=== PATIENT | male | born 1990 | race Caucasian/White ===

== ENCOUNTER → 2022-11-10 15:00 | Outpatient (BNVA) | payer MEDICAID, SELFPAY | PROVIDERS: Visit Provider Physician Assistant Surgical ==

== ENCOUNTER 2023-01-06 14:06 | Outpatient (AMB) | payer MEDICAID, SELFPAY ==
--- NOTE | 2023-01-06 14:11 | A.OFFVIS_ITS ---
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 His goal is to weigh about 215 lbs and get his life back. Was part of [facility] SWL program in 2022, found it difficult to navigate.He reports first being concerned about his weight childhood - great up in foster care. He has tried multiple methods of weight loss including [facility] program without permanent results. He lives with 3 room mates, doesn't know how to cook. He works 6 days per week from 8a - 5pm. He wakes at: 5:45 am, bed at 10:30 - 12 MN. Breakfast: 9:30 am - donuts or eggs. skips breakfast 3-4 d/week. Coffee sometimes with creamer. Lunch: 12:45 - 1:30 pm - take out food with co-workers, always fast food. If pizza 3 slices with wings and water or Coke or Gingerale. Dinner: 7pm - Fast food again. After dinner: sometimes pint of ice cream or chips Other snacks: not much, might have donuts or trail mix or cookies - laying around at work Liquids: Soda every day, fruit juice occasionally Alcohol intake: 1-2 beers daily, tobacco: cigars once every 3 months or so, marijuana: none Exercise: none, has gym membership - last used a year ago. NELSON:1 ESS:24 GERD:0 QOL: 126 PFSH Surgical History (Updated 11/10/22 @ 15:19 by Nicol Rosen CMA) No history of previous surgery Family History (Updated 11/10/22 @ 15:21 by Nicol Rosen CMA) Mother COPD (chronic obstructive pulmonary disease) Seizure Father No problems noted. Sister No problems noted. Social History (Updated 11/10/22 @ 15:19 by Nicol Rosen CMA) Alcohol intake: current Alcohol intake frequency: holidays/special occasions only Patient Tobacco Use Status: Never used Tobacco Physical Exam Const General: cooperative, no acute distress and well developed Nutritional Appearance: obese Orientation/consciousness: patient oriented x3 HEENT Head: Yes normal to inspection Neck Neck: Yes normal visual inspection Thyroid: Thyroid normal Resp Effort & Inspection: normal respiratory effort Auscultation: clear to auscultation bilaterally Cardio Rate: regular rate Rhythm: regular rhythm Heart sounds: S1 normal heart sound present, S2 normal heart sound present and no murmurs GI Inspection: No distended and Yes obesity Palpation (GI): Soft to palpation, nontender and no guarding Skin General skin exam: no rashes or lesions noted and other (warm and dry) Wounds: no wounds Hair: normal Neuro General: patient oriented x3 Extrem General: Yes no pedal edema and Yes no calf tenderness Psych Attitude: cooperative Thought process: Normal thought process present Thought content: Normal thought content present Insight: Good insight present (Psych) Judgement: Good judgement present (Psych) Assessment & Plan Assessment & Plan (1) Morbid obesity: Code(s): E66.01 - Morbid (severe) obesity due to excess calories Plan: This is a 32 yo man with super morbid obesity who will start SWL program to prepare for bariatric surgery. Blood work, h pylori , CXR, ECG, Abd ULS and UGI have been ordered. She is being scheduled for RD and BH initial consultations. He will start SWL classes and watch at 3 classes before her next appt with Jill. He does not know how to cook and is asking for help with this, he was given both recipe books. 1. Adequate sleep of 7-8 hours per night discussed,> 6 h per night with CPAP 2. Healthy meal plan - stop all fast food and stop all sweetened drinks All meals/MR's need to take 20 minutes to complete 7:30 30 gram shake 10 am - bar 12:30 - yogurt or cc with 1/2 c berries 3pm - shake 6 pm- dinner of 6 oz lean protein, 8 oz vegetable, 1 serving fruit 9pm- bar or yogurt Exercise - alternate LS 1 mile videos with TBP sitting 30 minute videos every day. Pt will purchase body composition analyzer (recommended list given to patient) and weight herself weekly. Next appt with me in 3 weeks. Text me with any questions and weekly weights. Patient is morbidly obese and is not considered stable at this time.?I spent a total of 60 minutes reviewing/updating records, examining the patient and counseling the patient on weight management as detailed above. (2) Pre-op evaluation: Code(s): Z01.818 - Encounter for other preprocedural examination Coding Level of Care Code New Pt Level 5 (99633) Diagnoses Morbid obesity E66.01 Pre-op evaluation Z01.818
[2023-01-06 14:29] VITALS: BP 149/72; PULSE 90; TEMP 36.3; O2SAT 95; BMI 72.2
[2023-01-10 10:31] LABS: H Pylori Breath Test Negative (Negative)
== END 2023-01-06 15:21 | disposition home or self-care (01) ==
PROVIDERS: Visit Provider Physician Assistant
DX: E66.01 Morbid (severe) obesity due to excess calories (principal); Z68.45 Body mass index [BMI] 70 or greater, adult
CPT/HCPCS: 99205

== ENCOUNTER → 2023-01-06 14:06 | Outpatient (BNVA) | payer MEDICAID, SELFPAY | PROVIDERS: Visit Provider Physician Assistant | DX: Z01.818 Encounter for other preprocedural examination (principal); E66.01 Morbid (severe) obesity due to excess calories; Z11.0 Encounter for screening for intestinal infectious diseases; Z68.45 Body mass index [BMI] 70 or greater, adult | CPT/HCPCS: 83013; 99211; 99212 ==

== ENCOUNTER 2023-01-14 09:22 | Outpatient (REF) | payer OTHER, SELFPAY ==
--- NOTE | ~2023-01-14 | XR_ITS ---
EXAMINATION: XR CHEST CLINICAL INFORMATION: Obesity. COMPARISON: Most recent chest radiograph dated 01/20/2017. TECHNIQUE: 2 views of the chest were obtained. FINDINGS: The lungs are clear. The cardiomediastinal silhouette is normal in size. There is no pleural effusion or pneumothorax. No acute osseous abnormality. XR/XR chest 2V IMPRESSION: No acute cardiopulmonary findings.
--- NOTE | 2023-01-14 09:36 | ECG_ITS ---
Test Reason : e66.01 Blood Pressure : / mmHG Vent. Rate : 074 BPM Atrial Rate : 074 BPM P-R Int : 136 ms QRS Dur : 090 ms QT Int : 392 ms P-R-T Axes : 010 009 -04 degrees QTc Int : 435 ms Normal sinus rhythm Possible Inferior infarct , age undetermined Abnormal ECG When compared with ECG of 20-JAN-2017 19:47, No significant change was found Referred By: Araceli Knight Electronically Signed By:JOO ALBERTS
[2023-01-14 09:54] LABS: MANUAL DIFF FLAG NO
[2023-01-14 10:13] LABS: Basophils Percent Auto 0.1 % (0-2); Eosinophils Absolute Auto 0.1 X10*3/uL (0.0-0.4); Eosinophils Percent Auto 0.8 % (0-4); Hematocrit 40.7 % (42.0-52.0); Imm Gran Abs Auto 0.03 X10*3/uL (0.00-0.03); Imm Gran Pct Auto 0.3 % (0.0-0.4); Lymphocytes Absolute Auto 2.3 X10*3/uL (1.2-4.9); Lymphocytes Percent Auto 21.9 % (20-40); Mean Corpuscular HGB Conc 31.9 g/dl (31.0-36.0); Mean Corpuscular Hemoglobin 24.3 pg (27.0-33.0); Mean Corpuscular Volume 76.2 fL (80.0-98.0); Mean Platelet Volume 10.4 fL (9.4-12.4); Monocytes Absolute Auto 0.8 X10*3/uL (0.1-1.2); Monocytes Percent Auto 7.8 % (2-11); Neutrophils Absolute Auto 7.1 x10*3/uL (2.0-8.3); Neutrophils Percent Auto 69.1 % (45-73); Platelet Count 297 X10*3/uL (160-400); Red Blood Count 5.34 X10*6/uL (4.60-5.80); Red Cell Distribution Width 15.9 % (11.0-16.0); White Blood Count 10.3 X10*3/uL (4.8-10.8)
[2023-01-14 10:29] LABS: Estimated Average Glucose 111 mg/dL; Hemoglobin A1c % 5.5 % (<6.0)
[2023-01-14 11:10] LABS: Alanine Aminotransferase 37 U/L (0-40); Albumin Level 4.3 g/dL (3.5-5.0); Alkaline Phosphatase 67 U/L (39-117); Anion Gap 13 (12-20); Aspartate Amino Transferase 27 U/L (5-37); Bilirubin Total 0.7 mg/dL (0.0-1.0); Blood Urea Nitrogen 15 mg/dL (9-16); C Reactive Protein 2.78 mg/dL (< or = 0.50); Calcium 9.9 mg/dL (8.4-10.2); Carbon Dioxide 25 mmol/L (22-29); Chloride 103 mmol/L (96-108); Cholesterol 127 mg/dL (<200); Estimated Glomerular Filt Rate > 60; Glucose Random 94 mg/dL (60-115); HDL Cholesterol 45 mg/dL (>40); Iron 42 mcg/dL (45-160); LDL Cholesterol Calculated 63 mg/dL (<100); Percent Iron Saturation 16 % (15-50); Potassium 3.9 mmol/L (3.3-5.1); Sodium 137 mmol/L (135-145); Total Iron Binding Capacity 263 mcg/dL (228-428); Triglycerides 98 mg/dL (<150); Unsaturated Iron Binding 221 ug/dL
[2023-01-14 11:32] LABS: Folate 14.7 ng/mL (> or = 4.0); Vitamin B12 581 pg/mL (200-900)
[2023-01-14 11:36] LABS: Ferritin 138 ng/mL (20-250); Insulin 17 uU/mL (2-29); TSH reflex Free T4 2.02 uIU/mL (0.32-4.0); Vitamin D 25-OH Total 15.3 ng/mL (>30)
[2023-01-18 14:38] LABS: Calcium (PTHI) 9.9 mg/dL (8.6-10.3); PTHI 55 pg/mL (16-77)
[2023-01-19 02:08] LABS: Zinc 50 mcg/dL (60-130)
[2023-01-21 06:04] LABS: Vitamin B1 6 nmol/L (8-30)
[2023-01-21 23:13] LABS: Vitamin A 33 mcg/dL (38-98)
== END 2023-01-14 09:23 | disposition home or self-care (01) ==
LOC: HO.LAB 09:22
PROVIDERS: PCP Nurse Practitioner Family; Visit Provider Physician Assistant
DX: Z01.818 Encounter for other preprocedural examination (principal); E66.01 Morbid (severe) obesity due to excess calories
CPT/HCPCS: 36415; 71046; 80053; 80061; 82306; 82607; 82728; 82746; 83036; 83525; 83540; 83970; 84425; 84443; 84590; 84630; 85025; 86140; 93005

== ENCOUNTER 2023-01-18 14:13 | Outpatient (AMB) | payer OTHER, SELFPAY ==
--- NOTE | 2023-01-18 14:03 | A.OFFVIS_ITS ---
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 typically buys pre seasoned meats/fish. Exercise: videos everyday 15 minutes and 20 minute each video, does both video Lives with 3 room mates, doesn't know how to cook. SWL online classes: patient was never enrolled in classes, . Previous weight loss methods attempted His goal is to weigh about 215 lbs and get his life back. Was part of [facility] SWL program in 2022, found it difficult to navigate. He reports first being concerned about his weight childhood - great up in foster care. He has tried multiple methods of weight loss including [facility] program without permanent results. H Dietary counseling reduction Lifestyle Eating out 4 or more times/week Diagnosis Nutrition problem #1 overweight/obesity As related to (etiology) #1 excess energy intake and physical inactivity As evidenced by (sign/symptom) #1 high BMI Monitoring/Goals Nutrition problem monitoring total energy intake, level of knowledge/skill, total PRO intake, total CHO intake, weight and oral fluids Outcome progress progressing Learning/Education Readiness to learn good Stages of change action Educational materials provided Yes Most Recent Diabetes Results: Cholesterol 127 mg/dL (<200) 01/14/23 HDL Cholesterol 45 mg/dL (>40) 01/14/23 Triglycerides 98 mg/dL (<150) 01/14/23 Creatinine 0.85 mg/dL (0.5-1.4) 01/14/23 Blood Urea Nitrogen 15 mg/dL (9-16) 01/14/23 Sodium 137 mmol/L (135-145) 01/14/23 Potassium 3.9 mmol/L (3.3-5.1) 01/14/23 Chloride 103 mmol/L (96-108) 01/14/23 Carbon Dioxide 25 mmol/L (22-29) 01/14/23 Calcium 9.9 mg/dL (8.4-10.2) 01/14/23 AST 27 U/L (5-37) 01/14/23 ALT 37 U/L (0-40) 01/14/23 Total Protein 9.0 g/dL (6.5-8.0) H 01/14/23 Albumin 4.3 g/dL (3.5-5.0) 01/14/23 PFSH Surgical History (Updated 11/10/22 @ 15:19 by Nicol Rosen [facility]) No history of previous surgery Family History (Updated 11/10/22 @ 15:21 by Nicol Rosen CMA) Mother COPD (chronic obstructive pulmonary disease) Seizure Father No problems noted. Sister No problems noted. Social History (Updated 11/10/22 @ 15:19 by Nicol Rosen CHUTE OPERATOR) Alcohol intake: current Alcohol intake frequency: holidays/special occasions only Patient Tobacco Use Status: Never used Tobacco Assessment & Plan Assessment & Plan (1) Morbid obesity: Code(s): E66.01 - Morbid (severe) obesity due to excess calories Patient Instructions: Patient seems to be doing very well changing eating habits. try to stick to 5oz protein and5oz veg to get used to small meals. Has the protein bar in the evening as needed. He will continue with his plan, educated on the rationale for some recommendations and how they relate to postop diet. I enrolled pt in online classes today and provided handouts via email. he will finish classes and f/u 02/23 2pm Telehealth Telehealth Location of provider rendering services: practice address Location of patient: address on file Patient Identification confirmed using: Name, : Yes Telehealth method: video Patient verbally consented to treatment: Yes Patient verbally consented to billing insurance company: Yes Patient informed of any privacy concerns related to visit: Yes Minutes spent on Phone/Video with Pt.: 30 Coding Level of Care Code Nutr Indiv Intake (78093) Diagnoses Morbid obesity E66.01 Time Spent (min) 30
== END 2023-01-18 14:18 | disposition home or self-care (01) ==
LOC: HO.HBS 14:13
PROVIDERS: PCP Nurse Practitioner Family; Visit Provider Dietitian, Registered
DX: E66.01 Morbid (severe) obesity due to excess calories (principal)

== ENCOUNTER → 2023-01-18 14:13 | Outpatient (BNVA) | payer OTHER, SELFPAY | PROVIDERS: PCP Nurse Practitioner Family; Visit Provider Dietitian, Registered | DX: E66.01 Morbid (severe) obesity due to excess calories (principal) | CPT/HCPCS: 97802 ==

== ENCOUNTER 2023-01-28 15:12 | Outpatient (AMB) | payer OTHER, SELFPAY ==
--- NOTE | 2023-01-28 15:12 | MHC.WMTHER ---
Intake Intake Visit Reasons: VIDEO BH Intake Allergies No Known Allergies [No Known Allergies*] Allergy (Verified 01/06/23 14:22) PFSH Surgical History (Updated 11/10/22 @ 15:19 by Nicol Rosen CMA) No history of previous surgery Family History (Updated 11/10/22 @ 15:21 by Nicol Rosen CMA) Mother COPD (chronic obstructive pulmonary disease) Seizure Father No problems noted. Sister No problems noted. Social History (Updated 11/10/22 @ 15:19 by Nicol Rosen CMA) Alcohol intake: current Alcohol intake frequency: holidays/special occasions only Patient Tobacco Use Status: Never used Tobacco Behavioral Health Assessment Weight Management Therapy Therapy Notes Details Pt is looking to have weight loss surgery to help improve his health and quality of life. He reported that there is many things he wants to do and cannot because of his weight. Pt stated that he was in therapy years ago and grew up in the foster care system. Also was taking medication in the past for depression. He denied a history of problems with drugs or alcohol although drinks socially on occasion. Presenting Concerns Referral Source provider Reason for referral weight loss surgery evaluation Precipitating Event obesity Living Situation Current Living Situation Rent At risk of losing current housing? No Satisfied with current living situation? Yes Comments Pt rents and has three roommates. Food/Weight/Diet Expectations of change weight loss and maintenance History/Relationship with food Pt stated that he would eat out of boredom, depression, while watching TV, playing video games especially at night on sweets. He reported mostly eating fast food and he does not know how to cook. History/Relationship with weight Pt is currently at his heaviest Binge Eating Do you frequently eat large amounts of food in short periods of time, not feeling physically hungry? No Do you feel out of control when you eat a large amount of food in a short period of time? Yes Do you eat large amounts of food rapidly and typically alone? No Night Eating Do you wake up at least once during the night to eat? No If you wake up in the night, do you find that it is necessary to eat something in order to fall back asleep? No Do you have little or no appetite in the morning and feel very hungry in the evening, often overeating between dinner and when you go to bed? Yes Social History Family history and relationship Pt stated that he is single with no children although in a relationship. He reported having no family and growing up in foster care. 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 no legal problems reported Education Highest grade completed trade Preferred learning style Auditory, Verbal, Written, Learn by doing and Visual Currently enrolled in educational program? No Interested in further educational program? 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 No Meaningful activities video games, TV Financial Situation Describe current financial situation Comfortable Financial assistance? None Service Service? No Mental Health and Addiction Treatment Current/Past substance abuse? No Current/Past addictive behavior concerns? No Medical and Physical Health Summary Physical exam in the last year? Yes Pain Screening Current pain? No Pain in the last few months? No Medications Is the patient compliant with medications? Not applicable Does the patient have Woodson Guardian in place? Not applicable Does the patient use complimentary health approaches? No Trauma/Abuse History History of trauma? Yes Questionnaires PHQ-9 Over the last 2 weeks, how often have you been bothered by any of the following problems? 1. Little interest or pleasure in doing things: nearly every day 2. Feeling down, depressed, or hopeless: not at all 3. Trouble falling or staying asleep, or sleeping too much: more than half the days 4. Feeling tired or having little energy: nearly every day 5. Poor appetite or overeating: not at all 6. Feeling bad about yourself - or that you are a failure or have let yourself or your family down: not at all 7. Trouble concentrating on things, such as reading the newspaper or watching television: not at all 8. Moving or speaking so slowly that other people could have noticed. Or the opposite - being so fidgety or restless that you have been moving around a lot more than usual: not at all 9. Thoughts that you would be better off or of hurting yourself in some way: not at all Total score: 8 Source: Developed by Drs. Durga Nath, Ela Chaves, Dav Davis and colleagues, with an educational venkatesh from [employer]. Binge Eating Scale Group 1 A. I don't feel self-conscious about my wt. or body size when I'm with others. B. I feel concerned about how I look to others, but it normally does not make me fell disappointed with myself C. I do get self-conscious about my appearance and wt. which makes me feel disappointed in myself. D. I feel very self-conscious about my wt. and frequently I feel intense shame and disgust for myself. I try to avoid social contacts because of my self-consciousness. Response Group 1: C Group 2 A. I don't have any difficulty eating slowly in the proper manner. B. Although I seem to gobble down foods, I don't end up feeling stuffed because of eating to much. C. At times, I tend to eat quickly and then, I feel uncomfortably full afterwards. D. I have the habit of bolting down my food, without really chewing it. When this happens I usually feel uncomfortably stuffed because I've eaten to much. Response Group 2: A Group 3 A. I feel capable to control my eating urges when I want to. B. I feel like I have failed to control my eating more than the average person. C. I feel utterly helpless when it comes to feeling in control of my eating urges. D. Because I feel so helpless about controlling my eating I have become very desperate about trying to get control. Response Group 3: A Group 4 A. I don't have the habit of eating when I'm bored. B. I sometimes eat when I'm bored, but often I'm able to get busy and get my mind off food. C. I have a regular habit of eating when I'm bored, but occasionally, I can use some other activity to get my mind off eating. D. I have a strong habit of eating when I'm bored. Nothing seems to help me breath the habit. Response Group 4: C Group 5 A. I'm usually physically hungry when I eat something. B. Occasionally, I eat something on impulse even though I really am not hungry. C. I have the regular habit of eating foods, that I might not really enjoy, to satisfy a hungry feeling even though physically, I don't need the food. D. Although I'm not physically hungry, I get a hungry feeling in my mouth that only seems to be satisfied when I eat a food, like sandwich, that fills my mouth. Sometimes, when I eat the food to satisfy my mouth hunger, I then spit the food out so I won't gain weight. Response Group 5: B Group 6 A. I don't feel any guilt or self-hate after I overeat. B. After I overeat, occasionally I feel guilt or self-hate. C. Almost all the time I experience strong guilt or self-hate after I overeat. Response Group 6: B Group 7 A. I don't lose total control of my eating when dieting even after periods when I overeat. B. Sometimes when I eat a forbidden food on a diet, I feel like I blew it and eat even more. C. Frequently, I have the habit of saying to myself, I've blown it now, why not go all the way, when I overeat on a diet. When that happens I eat more. D. I have a regular habit of starting a strict diets for myself but I break the diets by going on an eating binge. My life seems to be either a feast or famine. Response Group 7: A Group 8 A. I rarely eat so much food that I feel uncomfortably stuffed afterwards. B. Usually about once a month, I each such a quantity of food, I end up feeling very stuffed. C. I have regular periods during the month when I eat large amounts of food, either at mealtime or at snacks. D. I eat so much food that I regularly feel quite uncomfortable after eating and sometimes a bit nauseous. Response Group 8: C Group 9 A. My level of calorie intake does not go up very high or go down very low on a regular basis. B. Sometimes after I overeat, I will try to reduce my caloric intake to almost nothing to compensate for the excess calories I've eaten. C. I have a regular habit of overeating during the night. It seems that my routine is not to be hungry in the morning but overeat in the evening. D. In my adult years, I have had week-long periods where I practically starve myself. This follows periods when I overeat. It seems I live a life of either feast or famine. Response Group 9: C Group 10 A. I usually am able to stop eating when I want to. I know when enough is enough. B. Every so often, I experience a compulsion to eat which I can't seem to control. C. Frequently, I experience strong urges to eat which I seem unable to control, but at other times I can control my eating urges. D. I feel incapable of controlling urges to eat. I have a fear of not being able to stop eating voluntarily. Response Group 10: A Group 11 A. I don't have any problem stopping eating when I feel full. B. I usually can stop eating when I feel full but occasionally overeat leaving me feeling uncomfortably stuffed. C. I have a problem stopping eating once I start and usually I feel uncomfortably stuffed after I eat a meal. D. Because I have a problem not being able to stop eating when I want, I sometimes have to induce vomiting to relieve my stuffed feeling. Response Group 11: A Group 12 A. I seem to eat just as much when I'm with others, Family social gatherings as when I'm by myself. B. Sometimes, when I'm with other persons, I don't eat as much as I want to eat because I'm self-conscious about my eating. C. Frequently, I eat only a small amount of food when others are present, because I'm very embarrassed about my eating. D. I feel so ashamed about overeating that I pick times to overeat when I know no one will see me. I feel like a closet eater. Response Group 12: A Group 13 A. I eat three meals a day with only an occasional between meal snack. B. I eat 3 meals a day, but I also normally snack between meals. C. When I am snacking heavily, I get in the habit of skipping regular meals. D. There are regular periods when I seem to be continually eating, with no planned meals. Response Group 13: B Group 14 A. I don't think much about trying to control unwanted eating urges. B. At least some of the time, I feel my thoughts are pre-occupied with trying to control my eating urges. C. I feel that frequently I spend much time thinking about how much I ate or about trying not to eat anymore. D. It seems to me that most of my waking hours are pre-occupied by thoughts about eating or not eating. I feel like I'm constantly struggling not to eat. Response Group 14: B Group 15 A. I don't think about food a great deal. B. I have strong craving for food but they last only for brief periods of time. C. I have days when I can't seem to think about anything else but food. D. Most of my days seem to be pre-occupied with thoughts about food. I feel like I live to eat. Response Group 15: A Group 16 A. I usually know whether or not I'm physically hungry. I take the right portion of food to satisfy me. B. Occasionally, I feel uncertain about knowing whether or not I'm physically hungry. A these times it's hard to know how much food I should take to satisfy me. C. Even though I might know how many calories I should eat, I don't have any idea what is a normal amount of food for me. Response Group 16: B Binge Eating Score: 13 Score less than 17 Minimal Risk Score between 18-26 Moderate Risk Score between 27-46 High Risk Assessment & Plan Assessment & Plan (1) Dysthymia: Code(s): F34.1 - Dysthymic disorder (2) Morbid obesity: Code(s): E66.01 - Morbid (severe) obesity due to excess calories Plan Pt is a 32 year old single male who presents today via zoom for intake needed for weight loss surgery. Pt reported struggling with his weight since childhood being in the foster care system. He described depression, most likely trauma as well however no specifics asked on that today. His mother did pass away a few years ago after he started to connect with. Pt has low motivation, energy, and limited supports in his life. He will be seen again. Telehealth Telehealth Location of provider rendering services: other Location of patient: other Patient Identification confirmed using: Name, : Yes Telehealth method: video Patient verbally consented to treatment: Yes Patient verbally consented to billing insurance company: Yes Patient informed of any privacy concerns related to visit: Yes Minutes spent on Phone/Video with Pt.: 45 Coding Level of Care Code Tele Psy Diag Eval (13288) Diagnoses Dysthymia F34.1 Morbid obesity E66.01 Time Spent (min) 45
== END 2023-01-28 15:35 | disposition home or self-care (01) ==
LOC: HO.HBST 15:12
PROVIDERS: PCP Nurse Practitioner Family; Visit Provider Counselor Mental Health
DX: F34.1 Dysthymic disorder (principal); E66.01 Morbid (severe) obesity due to excess calories
CPT/HCPCS: 90791

== ENCOUNTER → 2023-01-28 15:12 | Outpatient (BNVA) | payer OTHER, SELFPAY | PROVIDERS: PCP Nurse Practitioner Family; Visit Provider Counselor Mental Health ==

== ENCOUNTER 2023-02-04 09:22 | Outpatient (REF) | payer OTHER, SELFPAY ==
--- NOTE | ~2023-02-04 | US_ITS ---
EXAMINATION: US COMPLETE ABDOMEN WITH LIVER ELASTOGRAPHY CLINICAL INFORMATION: Morbid obesity. COMPARISON: None available. TECHNIQUE: Real-time imaging of the abdominal viscera. Noninvasive ultrasound liver fibrosis assessment is performed using Johnson ElastPQ point quantification shear wave elastography (2D-SWE) with a C5-2 MHz transducer. Multiple elastography samples are obtained. FINDINGS: PANCREAS: Limited. The visualized pancreatic head and body are normal in appearance. The remainder of the pancreas is obscured from visualization by the overlying bowel gas. ABDOMINAL AORTA: The proximal, middle, and distal aortic segments are normal in caliber. INFERIOR VENA CAVA: Visualized portions are normal. LIVER: The liver demonstrates normal contour and generally increased echogenicity. No focal lesion or intrahepatic biliary duct dilatation. The right lobe measures 19.5 cm in length. The left lobe measures 14.6 cm in length. Portal flow is towards the liver (hepatopetal). Shear wave liver elastography median stiffness is 1.57 m/s (reference: normal median stiffness is 1.3 m/s or less). IQR/median stiffness to assess sampling precision is 0.04 (reference: good quality data set is IQR/median stiffness of 0.15 or less). GALLBLADDER: Normal. The gallbladder is physiologically distended without evidence of stones, sludge, polyps, wall thickening or pericholecystic fluid. COMMON BILE DUCT: Normal in caliber measuring 0.5 cm in diameter. RIGHT KIDNEY: Normal. No hydronephrosis. No renal calculi or focal parenchymal lesions. The kidney measures 11.8 cm in maximum dimension. LEFT KIDNEY: Normal. No hydronephrosis. No renal calculi or focal parenchymal lesions. The kidney measures 13.5 cm in maximum dimension. SPLEEN: Normal. The spleen measures 14.4 cm in maximum dimension. FREE FLUID: None. US/US abdomen comp w elastography IMPRESSION: 1. There is hepatosplenomegaly. 2. There is generalized increase in hepatic echotexture, consistent with fatty infiltration or hepatocellular disease. Please correlate clinically. No focal hepatic mass or intrahepatic biliary dilatation is seen. 3. Liver elastography: In the absence of other known clinical signs, measurements rule out compensated advanced chronic liver disease. If there are known clinical signs, further testing may be needed for confirmation. 4. Technically limited ultrasound examination of the pancreatic tail. REFERENCE: Society of Radiologists in Ultrasound Liver Stiffness Thresholds (2020): LIVER STIFFNESS THRESHOLDS: *Liver Stiffness equal or less than 1.3 m/s: High probability of being normal. *Liver Stiffness less than 1.7 m/s: In the absence of other known clinical signs, rules out compensated advanced chronic liver disease. *Liver Stiffness 1.7-2.1 m/s: Suggestive of compensated advanced chronic liver disease but need further test for confirmation. *Liver Stiffness over 2.1 m/s: Rules in compensated advanced chronic liver disease. *Liver Stiffness over 2.4 m/s: Suggestive of clinically significant portal hypertension. QUALITY OF DATA SET: *IQR/Median value equal or less than 0.15 implies a quality data set. *IQR/Median value over 0.15 implies a poor quality data set. SIGNIFICANT CHANGE FROM PRIOR EXAM: Significant change if liver stiffness measurement is 10% or greater from prior exam. OTHER CONSIDERATIONS: The stage of liver fibrosis may be overestimated in the setting of acute hepatitis, liver inflammation, elevated liver function tests, hepatic vascular congestion, obstructive cholestasis, non-fasting state, and infiltrative diseases such as amyloidosis and lymphoma. In some patients with NAFLD, the liver stiffness thresholds for compensated advanced chronic liver disease may be lower. In causes other than viral hepatitis and NAFLD, liver stiffness thresholds are not well established.
== END 2023-02-04 09:23 | disposition home or self-care (01) ==
LOC: HO.US 09:22
PROVIDERS: PCP Nurse Practitioner Family; Visit Provider Physician Assistant
DX: Z01.818 Encounter for other preprocedural examination (principal); E66.01 Morbid (severe) obesity due to excess calories
CPT/HCPCS: 76705; 76981

== ENCOUNTER 2023-02-15 16:16 | Outpatient (AMB) | payer OTHER, SELFPAY ==
--- NOTE | 2023-02-15 15:53 | A.OFFVIS_ITS ---
Intake Intake Visit Reasons: VIDEO F/U SWL Allergies No Known Allergies [No Known Allergies*] Allergy (Verified 01/06/23 14:22) HPI HPI Comments History of Present Illness Details This is the patients second appt for SWL. Starting weight was 447.9 lbs on 01/06/23. Has been sick for the last week, red swollen left leg - doppler study negative when seen in ED at [facility] 2 days ago. Given antibiotics - now 48 hours later, leg is more swollen more erythematous and he is having chest pain. Appointment aborted. I told him he must go to ED [facility], if no one home to give him a ride he needs to call an ambulance. Will text me tomorrow with follow up. Below information NOT discussed with patient. Pre op work up completed as follows: SWL classes BH appts - follow up on 02/23 appts - follow up on 02/23 H pylori - negative Labs - anemic, Vit A, B1 and D deficient CXR -normal ECG - Normal sinus rhythm Possible Inferior infarct , age undetermined Abnormal ECG When compared with ECG of 20-JAN-2017 19:47, No significant change was found ECHO and Stress tests - 02/18 ULS -hepatosplenomegaly - 19.5 and 14.6 cms UGI - 03/25 [facility] Surgical History (Updated 11/10/22 @ 15:19 by Nicol Rosen CMA) No history of previous surgery Family History (Updated 11/10/22 @ 15:21 by Nicol Rosen CMA) Mother COPD (chronic obstructive pulmonary disease) Seizure Father No problems noted. Sister No problems noted. Social History (Updated 11/10/22 @ 15:19 by Nicol Rosen CMA) Alcohol intake: current Alcohol intake frequency: holidays/special occasions only Patient Tobacco Use Status: Never used Tobacco Assessment & Plan Assessment & Plan (1) Morbid obesity: Code(s): E66.01 - Morbid (severe) obesity due to excess calories Plan: SWL plans not discussed today, see HPI. Patient will text me with follow up and will reschedule appt with me. Patient is still morbidly obese and is not considered stable at this time. I spent 10 minutes in total speaking with the patient via video conference counseling , reviewing records and charting in patients chart. . (2) Left leg swelling: Code(s): M79.89 - Other specified soft tissue disorders Plan: Celluliits vs DVT - told to go to ED [facility]. (3) Abnormal ECG: Code(s): R94.31 - Abnormal electrocardiogram [ECG] [EKG] Telehealth Telehealth Location of provider rendering services: practice address Location of patient: address on file Patient Identification confirmed using: Name, : Yes Telehealth method: video Patient verbally consented to treatment: Yes Patient verbally consented to billing insurance company: Yes Patient informed of any privacy concerns related to visit: Yes Coding Level of Care Code Tele Est Pt Level 3 (73859) Diagnoses Morbid obesity E66.01 Left leg swelling M79.89 Abnormal ECG R94.31
== END 2023-02-15 16:16 | disposition home or self-care (01) ==
LOC: HO.HBS 16:16
PROVIDERS: PCP Nurse Practitioner Family; Visit Provider Physician Assistant
DX: E66.01 Morbid (severe) obesity due to excess calories (principal); Z68.45 Body mass index [BMI] 70 or greater, adult; R94.31 Abnormal electrocardiogram [ECG] [EKG]
CPT/HCPCS: 99213

== ENCOUNTER → 2023-02-15 16:16 | Outpatient (BNVA) | payer OTHER, SELFPAY | PROVIDERS: PCP Nurse Practitioner Family; Visit Provider Physician Assistant | DX: E66.01 Morbid (severe) obesity due to excess calories (principal); M79.89 Other specified soft tissue disorders; R94.31 Abnormal electrocardiogram [ECG] [EKG] ==

== ENCOUNTER → 2023-02-23 14:23 | Outpatient (BNVA) | payer OTHER, SELFPAY | PROVIDERS: PCP Nurse Practitioner Family; Visit Provider Dietitian, Registered | DX: E66.01 Morbid (severe) obesity due to excess calories (principal); F34.1 Dysthymic disorder | CPT/HCPCS: 97803 ==

== ENCOUNTER 2023-02-23 16:00 | Outpatient (AMB) | payer OTHER, SELFPAY ==
--- NOTE | 2023-02-23 16:10 | MHC.WMTHER ---
Intake Intake Visit Reasons: VIDEO BH F/U Allergies No Known Allergies [No Known Allergies*] Allergy (Verified 01/06/23 14:22) PFS Surgical History (Updated 11/10/22 @ 15:19 by Nicol Rosen CMA) No history of previous surgery Family History (Updated 11/10/22 @ 15:21 by Nicol Rosen CMA) Mother COPD (chronic obstructive pulmonary disease) Seizure Father No problems noted. Sister No problems noted. Social History (Updated 11/10/22 @ 15:19 by Nicol Rosen CMA) Alcohol intake: current Alcohol intake frequency: holidays/special occasions only Patient Tobacco Use Status: Never used Tobacco Behavioral Health Assessment Weight Management Therapy Therapy Notes Details Chito talked about his recent hospital admission, struggles with pain at night in his back, needing surgery but also having to loose weight first. Pt is looking to have weight loss surgery to help improve his health and quality of life. He reported that there is many things he wants to do and cannot because of his weight. Pt stated that he was in therapy years ago and grew up in the foster care system. Also was taking medication in the past for depression. He denied a history of problems with drugs or alcohol although drinks socially on occasion. Presenting Concerns Referral Source provider Reason for referral weight loss surgery evaluation Precipitating Event obesity Living Situation Current Living Situation Rent At risk of losing current housing? No Satisfied with current living situation? Yes Comments Pt rents and has three roommates. Food/Weight/Diet Expectations of change weight loss and maintenance History/Relationship with food Pt stated that he would eat out of boredom, depression, while watching TV, playing video games especially at night on sweets. He reported mostly eating fast food and he does not know how to cook. History/Relationship with weight Pt is currently at his heaviest Binge Eating Do you frequently eat large amounts of food in short periods of time, not feeling physically hungry? No Do you feel out of control when you eat a large amount of food in a short period of time? Yes Do you eat large amounts of food rapidly and typically alone? No Night Eating Do you wake up at least once during the night to eat? No If you wake up in the night, do you find that it is necessary to eat something in order to fall back asleep? No Do you have little or no appetite in the morning and feel very hungry in the evening, often overeating between dinner and when you go to bed? Yes Social History Family history and relationship Pt stated that he is single with no children although in a relationship. He reported having no family and growing up in foster care. 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 no legal problems reported Education Highest grade completed trade Preferred learning style Auditory, Verbal, Written, Learn by doing and Visual Currently enrolled in educational program? No Interested in further educational program? 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 No Meaningful activities video games, TV Financial Situation Describe current financial situation Comfortable Financial assistance? None Service Service? No Mental Health and Addiction Treatment Current/Past substance abuse? No Current/Past addictive behavior concerns? No Medical and Physical Health Summary Physical exam in the last year? Yes Pain Screening Current pain? No Pain in the last few months? No Medications Is the patient compliant with medications? Not applicable Does the patient have Woodson Guardian in place? Not applicable Does the patient use complimentary health approaches? No Trauma/Abuse History History of trauma? Yes Assessment & Plan Assessment & Plan (1) Dysthymia: Code(s): F34.1 - Dysthymic disorder (2) Morbid obesity: Code(s): E66.01 - Morbid (severe) obesity due to excess calories Plan Pt is a 32 year old single male who presents today via zoom for intake needed for weight loss surgery. Pt reported struggling with his weight since childhood being in the foster care system. He described depression, most likely trauma as well however no specifics asked on that today. His mother did pass away a few years ago after he started to connect with. Pt has low motivation, energy, and limited supports in his life. He will be seen again. Telehealth Telehealth Location of provider rendering services: other Location of patient: other Patient Identification confirmed using: Name, : Yes Telehealth method: voice only Minutes spent on Phone/Video with Pt.: 25 Coding Level of Care Code Tele Psytx 30 mins (69988) Diagnoses Dysthymia F34.1 Morbid obesity E66.01 Time Spent (min) 25
== END 2023-02-23 16:09 | disposition home or self-care (01) ==
LOC: HO.HBST 16:00
PROVIDERS: PCP Nurse Practitioner Family; Visit Provider Counselor Mental Health
DX: F34.1 Dysthymic disorder (principal); E66.01 Morbid (severe) obesity due to excess calories
CPT/HCPCS: 90832

== ENCOUNTER 2023-03-25 10:18 | Outpatient (AMB) | payer OTHER, SELFPAY ==
[2023-03-25 10:32] VITALS: BP 124/84; PULSE 86; O2SAT 95; BMI 67.7
--- NOTE | 2023-03-25 10:32 | A.OFFPC_ITS ---
Vital Signs 03/25/23 10:32 Height 5 ft 6 in Weight 419 lb 4 oz BMI 67.7 BP 124/84 Blood Pressure Location Lt brachial Position Sitting Pulse 86 Pulse Source Pulse Oximeter Pulse Oximetry (%) 95 Oxygen Delivery Method Room Air Intake Visit Reasons: New patient-requesting physical Coordinator Cardiopulmonary Services Required: No Accompanied by: Self / Same As Patient Allergies No Known Allergies [No Known Allergies*] Allergy (Verified 03/25/23 10:32) Medication List - Last Reconciled 03/25/23 by MONICA Ren albuterol 90 mcg/actuation mcg inhalation cholecalciferol (vitamin D3) 50 mcg PO DAILY iron,carbonyl-vitamin C 65 mg iron- 125 mg (Vitron-C) 1 tab PO BEDTIME thiamine HCl (vitamin B1) 50 mg PO DAILY vitamin A palmitate 3,000 mcg PO DAILY 2 weeks zinc gluconate 10 mg PO DAILY Tobacco use date assessed: 03/25/23 Dental Screening Dental Screen Date: 03/25/23 Did you have a dental visit in the last 12 months?: Yes Did you have a dental problem in the last 6 months where you did not have access to dental care?: No Was dental information given to patient?: Patient has dentist HPI HPI Comments History of Present Illness Details 32-year-old male new patient presents to day to establish care. Past medical history significant for obstructive sleep apnea and uses CPAP machine nightly for greater than 4 hours a night and benefits from this, osteoarthritis of left knee. Patient reports he has been seen by [facility] in the past however they cannot do anything for his knee until he reduces his BMI. Patient currently following with weight management program for this with plans undergo bariatric surgery. Patient has lost 25 lb since initiating this program. Simransara preeti reports [facility] for right leg cellulitis which is resolved. Patient also reports history of depression, currently in the process of setting up counselor. Eye exam: last year flu shot declined. TD 2015. Complete blood work done by weight management in December, repeat labs deferred at this time [facility] Medical History (Updated 03/25/23 @ 11:04 by MONICA Ren) Depression Cellulitis of right leg Left leg swelling Surgical History (Updated 03/25/23 @ 10:57 by MONICA Ren) H/O wisdom tooth extraction Family History Mother COPD (chronic obstructive pulmonary disease) Seizure Father No problems noted. Sister No problems noted. 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 1. Little interest or pleasure in doing things: not at all 2. Feeling down, depressed, or hopeless: not at all 3. Trouble falling or staying asleep, or sleeping too much: not at all 4. Feeling tired or having little energy: not at all 5. Poor appetite or overeating: not at all 6. Feeling bad about yourself - or that you are a failure or have let yourself or your family down: not at all 7. Trouble concentrating on things, such as reading the newspaper or watching television: not at all 8. Moving or speaking so slowly that other people could have noticed. Or the opposite - being so fidgety or restless that you have been moving around a lot more than usual: not at all 9. Thoughts that you would be better off or of hurting yourself in some way: not at all Total score: 0 Depression Screening Interpretation: Negative Depression Screening Done: Yes 46530 - PHQ-9 Billing: Yes Source: Developed by Drs. Durga Nath, Ela Chaves, Dav Davis and colleagues, with an educational venkatesh from [employer]. Thrive Questionnaire Date Thrive assessed: 03/25/23 I am a: Patient What is your living situation today?: I have a steady place to live Within the past 12 months, did the food you bought not last and you didn't have the money to get more?: Never true Within the past 12 months, did you worry whether your food would run out before you got money to buy more?: Never true Do you have trouble paying for medicines?: No Do you have trouble getting transportation to medical appointments?: No Do you have trouble paying your heating and electricity bill?: No Do you have trouble taking care of your child, family member or friend?: No Do you have trouble with day-to-day activities such as bathing, preparing meals, shopping, managing finances, etc.?: No Are you currently unemployed and looking for a job?: No Are you interested in more education?: No Please select the resources that you would like help with: None Currently or been in a relationship where the following occur: no concerns reported AUDIT C Alcohol Use Questionnaire (AUDIT-C) 1. How often do you have a drink containing alcohol?: Monthly or less 2. How many drinks containing alcohol do you have on a typical day when you are drinking?: 10 or more 3. How often do you have six or more drinks on one occasion?: Less than monthly Total Score: 6 REZA-7 AMB Questionnaire REZA-7 Date REZA - 7 assessed: 03/25/23 Feeling nervous, anxious, or on edge: 0 = Not at all Not being able to stop or control worryin = Not at all Worrying too much about different things: 0 = Not at all Trouble relaxin = Not at all Being so restless that it is hard to sit still: 0 = Not at all Becoming easily annoyed or irritable: 0 = Not at all Feeling afraid as if something awful might happen: 0 = Not at all Total REZA-7 score (0-4 normal; 5-9 mild; 10-14 moderate; 15-21 severe): 0 Source: Developed by Drs. Durga Nath, Ela Chaves, Dav Davis and colleagues, with an educational venkatesh from [employer]. REZA-7 Assessment Billing REZA-7 Assessment Tool: REZA-7 Assessment 60217 Review of Systems Const Denies chills, Denies fatigue, Denies fever(s) and Denies poor appetite Eyes Denies no additional complaints ENT Reports Normal hearing present Card Denies chest pain, Denies syncope, Denies rapid heart rate and Denies dyspnea Resp Denies cough and Denies dyspnea GI Denies change in stool character, Denies constipation, Denies diarrhea, Denies nausea and Denies vomiting Denies dysuria, Denies urinary frequency and Denies urinary urgency Neuro Reports Normal hearing present, Denies confusion and Denies syncope Psych Denies confusion Endo Denies fatigue Physical exam (Primary Care) Vital Signs: Last Vital Signs Pulse 86 03/25/23 10:32 BP 124/84 03/25/23 10:32 Pulse Ox 95 03/25/23 10:32 Oxygen Delivery Method Room Air 03/25/23 10:32 BMI result Body Mass Index 67.7 Tobacco/Smoking Status: Tobacco use Status Tobacco use date assessed 03/25/23 03/25/23 10:42 Patient Tobacco Use Status Former Tobacco user 03/25/23 10:57 Tobacco use type Cigarette 03/25/23 10:57 e-Cigarette/Vaping Use Former Use 03/25/23 10:57 PHQ-9: PHQ-9 Score PHQ-9: Total score 0 03/25/23 11:01 Depression Screening Interpretation: Negative Thrive Assessment: Date of Thrive Assessment Date Thrive assessed 03/25/23 03/25/23 10:42 Currently or been in a relationship where the following occur: no concerns reported Const General: No confusion Orientation/consciousness: No confusion HENMT Head: Yes normocephalic and Yes atraumatic Ears: external ears normal and TM's normal bilaterally General nose exam: Normal external nose present and Normal nasal mucous membranes and turbinates present Face and sinus: Yes normal facial exam and Yes sinuses nontender Mouth: moist mucous membranes Throat: Yes tonsils normal Eyes Conjunctivae: conjunctivae normal Sclerae: sclerae normal Pupils: Equal, round and reactive pupils present and Pupils normal by confrontation EOM: EOMs intact bilaterally Direct Ophthalmoscopy: normal light reflex Neck Neck: Yes no lymphadenopathy and Yes supple Thyroid: Thyroid normal Chest Chest palpation & inspection: normal inspection of the chest Resp Effort & Inspection: normal respiratory effort Auscultation: clear to auscultation bilaterally, no crackles, no rhonchi and no wheezes Cardio Rate: regular rate Rhythm: regular rhythm Peripheral pulses: radial pulses present and dorsalis pedis present GI Inspection: Yes normal to inspection Palpation (GI): Soft to palpation, nontender and No hepatosplenomegaly present Auscultation: normoactive bowel sounds Skin General skin exam: no rashes or lesions noted Neuro General: No confusion Cranial nerves: Yes Equal, round and reactive pupils present and Yes Normal hearing present Cognition (Neuro): normal cognition Gait exam (Neuro): Normal gait present Motor exam (neuro): 5/5 motor strength present throughout Deep tendon reflexes (DTR's): Right brachioradialis reflex intensity grade: 2+, Left brachioradialis reflex intensity grade: 2+, Right patellar reflex intensity grade: 2+ and Left patellar reflex intensity grade: 2+ Extrem General: No edema Assessment and Plan Assessment & Plan (1) Morbid obesity: Code(s): E66.01 - Morbid (severe) obesity due to excess calories Plan: Continue to follow with weight management. Diet and exercise to decrease BMI. (2) Asthma: Code(s): J45.909 - Unspecified asthma, uncomplicated Plan: Continue on albuterol inhaler as needed for shortness of breath and wheezing. (3) MARILOU (obstructive sleep apnea): Comment: on CPAP nightly Code(s): G47.33 - Obstructive sleep apnea (adult) (pediatric) Plan: Continue to use CPAP nightly for greater than 4 hours a night with good effect. (4) Physical exam, annual: Code(s): Z00.00 - Encounter for general adult medical examination without abnormal findings Plan: Follow-up in 1 year for annual exam or sooner if needed. Plan Follow-up in 1 year. Coding Level of Care Code New Pt Prev Care 18-39yr([id number] Diagnoses Morbid obesity E66.01 Asthma J45.909 MARILOU (obstructive sleep apnea) G47.33 Physical exam, annual Z00.00 Additional Codes REZA-7 Assessment Billing - REZA-7 Assessment Tool: REZA-7 Assessment 67205 ([id number])
== END 2023-03-25 11:11 | disposition home or self-care (01) ==
PROVIDERS: PCP Nurse Practitioner Family; Visit Provider Nurse Practitioner Family
DX: Z00.00 Encounter for general adult medical examination without abnormal findings (principal); E66.01 Morbid (severe) obesity due to excess calories; Z68.44 Body mass index [BMI] 60.0-69.9, adult; J45.909 Unspecified asthma, uncomplicated; G47.33 Obstructive sleep apnea (adult) (pediatric)
CPT/HCPCS: 99385

== ENCOUNTER 2023-03-31 16:00 | Outpatient (AMB) | payer OTHER, SELFPAY ==
--- NOTE | 2023-03-31 13:57 | A.OFFVIS_ITS ---
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 No weight today, last week at home weighed 410 lbs. Pt was hospitalized at [facility] in February for LE cellulitis, now able to exercise again. Needs surgery to reconstruct ACL and meniscus on left knee, needs to loose weight first. Meal plan: 7am- Premier RTd - switching to powder n ow 10am - bar 12pm - salad with grilled chicken, low f at dressing (2 d/ week) OR shake 3pm- bar, forgets sometimes 7pm - salmon or chicken and vegetables - 12 forks each Exercise - TBP sitting videos 30 minutes 5 d/ week. Pre op work up completed as follows: SW classes - 08/01 appts - follow up on 02/23 appts - follow up on 02/23 H pylori - negative Labs - anemic, Vit A, B1 and D deficient CXR -normal ECG - Normal sinus rhythm Possible Inferior infarct , age undetermined Abnormal ECG When compared with ECG of 20-JAN-2017 19:47, No significant change was found ECHO and Stress tests - 02/18 --- not done, was in hosptial ULS -hepatosplenomegaly - 19.5 and 14.6 cms UGI - 03/25,needs to be rescheduled, was in hosptial [facility] Medical History (Updated 03/25/23 @ 11:04 by MONICA Ren) Depression Cellulitis of right leg Left leg swelling Surgical History (Updated 03/25/23 @ 10:57 by MONICA Ren) H/O wisdom tooth extraction Family History Mother COPD (chronic obstructive pulmonary disease) Seizure Father No problems noted. Sister No problems noted. 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 Meal plan - shake, bar , shake, bar meal of 12 forks each Exercise - TBP 30 minute sitting videos 5 d/ week. UGI to be rescheduled Follow up appt with Cristel to be scheduled. Appt with me in 3 weeks. Patient is still morbidly obese and is not considered stable at this time. I spent 30 minutes in total speaking with the patient via video conference counseling , reviewing records and charting in patients chart. . (2) Abnormal ECG: Code(s): R94.31 - Abnormal electrocardiogram [ECG] [EKG] Plan: Will reschedule ECHO and cardiac stress test (3) Arthritis of left knee: Code(s): M17.12 - Unilateral primary osteoarthritis, left knee Plan: sitting exercises only Plan see above Telehealth Telehealth Location of provider rendering services: practice address Location of patient: address on file Patient Identification confirmed using: Name, : Yes Telehealth method: video Patient verbally consented to treatment: Yes Patient verbally consented to billing insurance company: Yes Patient informed of any privacy concerns related to visit: Yes Coding Level of Care Code Tele Est Pt Level 4 (01554) Diagnoses Morbid obesity E66.01 Abnormal ECG R94.31 Arthritis of left knee M17.12
== END 2023-03-31 16:24 | disposition home or self-care (01) ==
LOC: HO.HBS 16:13
PROVIDERS: PCP Nurse Practitioner Family; Visit Provider Physician Assistant
DX: E66.01 Morbid (severe) obesity due to excess calories (principal); R94.31 Abnormal electrocardiogram [ECG] [EKG]; M17.12 Unilateral primary osteoarthritis, left knee
CPT/HCPCS: 99214

== ENCOUNTER → 2023-03-31 16:00 | Outpatient (BNVA) | payer OTHER, SELFPAY | PROVIDERS: PCP Nurse Practitioner Family; Visit Provider Physician Assistant ==

== ENCOUNTER 2023-04-15 11:12 | Outpatient (AMB) | payer OTHER, SELFPAY ==
--- NOTE | 2023-04-15 13:20 | MHC.WMTHER ---
Intake Intake Visit Reasons: VIDEO F/U SWL Allergies No Known Allergies [No Known Allergies*] Allergy (Verified 03/25/23 10:32) PFSH Medical History (Updated 03/25/23 @ 11:04 by MONICA Ren) Depression Cellulitis of right leg Left leg swelling Surgical History (Updated 03/25/23 @ 10:57 by MONICA Ren) H/O wisdom tooth extraction Family History Mother COPD (chronic obstructive pulmonary disease) Seizure Father No problems noted. Sister No problems noted. 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 We reviewed potential barriers based on initial assessment. Chito talked about his recent hospital admission, struggles with pain at night in his back, needing surgery but also having to loose weight first. Pt is looking to have weight loss surgery to help improve his health and quality of life. He reported that there is many things he wants to do and cannot because of his weight. Pt stated that he was in therapy years ago and grew up in the foster care system. Also was taking medication in the past for depression. He denied a history of problems with drugs or alcohol although drinks socially on occasion. Presenting Concerns Referral Source provider Reason for referral weight loss surgery evaluation Precipitating Event obesity Living Situation Current Living Situation Rent At risk of losing current housing? No Satisfied with current living situation? Yes Comments Pt rents and has three roommates. Food/Weight/Diet Expectations of change weight loss and maintenance History/Relationship with food Pt stated that he would eat out of boredom, depression, while watching TV, playing video games especially at night on sweets. He reported mostly eating fast food and he does not know how to cook. History/Relationship with weight Pt is currently at his heaviest Binge Eating Do you frequently eat large amounts of food in short periods of time, not feeling physically hungry? No Do you feel out of control when you eat a large amount of food in a short period of time? Yes Do you eat large amounts of food rapidly and typically alone? No Night Eating Do you wake up at least once during the night to eat? No If you wake up in the night, do you find that it is necessary to eat something in order to fall back asleep? No Do you have little or no appetite in the morning and feel very hungry in the evening, often overeating between dinner and when you go to bed? Yes Social History Family history and relationship Pt stated that he is single with no children although in a relationship. He reported having no family and growing up in foster care. 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 no legal problems reported Education Highest grade completed trade Preferred learning style Auditory, Verbal, Written, Learn by doing and Visual Currently enrolled in educational program? No Interested in further educational program? 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 No Meaningful activities video games, TV Financial Situation Describe current financial situation Comfortable Financial assistance? None Service Service? No Mental Health and Addiction Treatment Current/Past substance abuse? No Current/Past addictive behavior concerns? No Medical and Physical Health Summary Physical exam in the last year? Yes Pain Screening Current pain? No Pain in the last few months? No Medications Is the patient compliant with medications? Not applicable Does the patient have Woodson Guardian in place? Not applicable Does the patient use complimentary health approaches? No Trauma/Abuse History History of trauma? Yes Assessment & Plan Assessment & Plan (1) Dysthymia: Code(s): F34.1 - Dysthymic disorder (2) Morbid obesity: Code(s): E66.01 - Morbid (severe) obesity due to excess calories Plan Pt is a 32 year old single male who presented initially via zoom for intake needed for weight loss surgery. Pt reported struggling with his weight since childhood being in the foster care system. He described depression, most likely trauma as well however no specifics mentioned. His mother did pass away a few years ago after he started to develop a rel. with her. Pt has low motivation, energy, and limited supports in his life. Today he reports everything is going well and no struggles. He did agree to communicate with this telegraphic typewriter installer due to initial concerns. Telehealth Telehealth Location of provider rendering services: other Location of patient: address on file Patient Identification confirmed using: Name, : Yes Telehealth method: voice only Patient verbally consented to treatment: Yes Patient verbally consented to billing insurance company: Yes Patient informed of any privacy concerns related to visit: Yes Minutes spent on Phone/Video with Pt.: 25 Coding Level of Care Code Tele Psytx 30 mins (46438) Diagnoses Dysthymia F34.1 Morbid obesity E66.01 Time Spent (min) 25
== END 2023-04-15 13:20 | disposition home or self-care (01) ==
LOC: HO.HBST 11:12
PROVIDERS: PCP Nurse Practitioner Family; Visit Provider Counselor Mental Health
DX: F34.1 Dysthymic disorder (principal); E66.01 Morbid (severe) obesity due to excess calories
CPT/HCPCS: 90832

== ENCOUNTER → 2023-04-15 11:12 | Outpatient (BNVA) | payer OTHER, SELFPAY | PROVIDERS: PCP Nurse Practitioner Family; Visit Provider Counselor Mental Health ==

== ENCOUNTER 2023-04-21 14:30 | Outpatient (AMB) | payer OTHER, SELFPAY ==
--- NOTE | 2023-04-21 12:07 | A.OFFVIS_ITS ---
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 meal plan: 7:30 am - Premier powder mixed with wate r 10am - fit crunch bars 12:30 - Premier shake 3 pm - fit crunch bar - skips it because he is not hungry 7 pm - 11 forks each of protein and vege table Bed at 10:30 pm. Exercise - 15 minutes of TBP or LS video 2 d/week. Has gym membership, can't bend knee easily. Pre op work up completed as follows: SWL classes - 08/01 BH appts - needs follow up RD appts - needs follow up H pylori - negative Labs - anemic, Vit A, B1 and D deficient CXR -normal ECG - Normal sinus rhythm Possible Inferior infarct , age undetermined Abnormal ECG When compared with ECG of 20-JAN-2017 19:47, No significant change was found ECHO and Stress tests - 02/18 --- not done, was in hospital ULS -hepatosplenomegaly - 19.5 and 14.6 cms UGI - 03/25, needs to be rescheduled, was in hospital with cellulitis [facility] Medical History (Updated 03/25/23 @ 11:04 by MONICA Ren) Depression Cellulitis of right leg Left leg swelling Surgical History (Updated 03/25/23 @ 10:57 by MONICA Ren) H/O wisdom tooth extraction Family History Mother COPD (chronic obstructive pulmonary disease) Seizure Father No problems noted. Sister No problems noted. 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 Exercise - start 4 d/ week at gym now. speed - 2.8, incline 1 -4 (change 3 minutes) - [address] 3d/ week, low weights, 45 reps each. UGI to be rescheduled today. BH and RD follow ups Text me weekly, appt with me 3 weeks. Patient is still morbidly obese and is not considered stable at this time. I spent 30 minutes in total speaking with the patient via video conference counseling , reviewing records and charting in patients chart. . (2) MARILOU (obstructive sleep apnea): Comment: on CPAP nightly Code(s): G47.33 - Obstructive sleep apnea (adult) (pediatric) Plan see above Telehealth Telehealth Location of provider rendering services: practice address Location of patient: address on file Patient Identification confirmed using: Name, : Yes Telehealth method: video Patient verbally consented to treatment: Yes Patient verbally consented to billing insurance company: Yes Patient informed of any privacy concerns related to visit: Yes Coding Level of Care Code Tele Est Pt Level 4 (58113) Diagnoses Morbid obesity E66.01 MARILOU (obstructive sleep apnea) G47.33
[2023-04-21 14:40] VITALS: BMI 67.5
== END 2023-04-21 15:02 | disposition home or self-care (01) ==
LOC: HO.HBS 15:02
PROVIDERS: PCP Nurse Practitioner Family; Visit Provider Physician Assistant
DX: E66.01 Morbid (severe) obesity due to excess calories (principal); G47.33 Obstructive sleep apnea (adult) (pediatric)
CPT/HCPCS: 99214

== ENCOUNTER → 2023-04-21 14:30 | Outpatient (BNVA) | payer OTHER, SELFPAY | PROVIDERS: PCP Nurse Practitioner Family; Visit Provider Physician Assistant | DX: E66.01 Morbid (severe) obesity due to excess calories (principal); G47.33 Obstructive sleep apnea (adult) (pediatric) ==

== ENCOUNTER 2023-04-30 14:50 | Outpatient (AMB) | payer OTHER, SELFPAY ==
--- NOTE | 2023-04-30 14:40 | MHC.AMNUTRGE ---
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 completed all onlne classes and reviewed today, all questions answered Previous weight loss methods attempted His goal is to weigh about 215 lbs and get his life back. Was part of [facility] SWL program in 2022, found it difficult to navigate. He reports first being concerned about his weight childhood - great up in foster care. He has tried multiple methods of weight loss including [facility] program without permanent results. H Dietary counseling reduction Diagnosis Nutrition problem #1 overweight/obesity As related to (etiology) #1 excess energy intake and physical inactivity As evidenced by (sign/symptom) #1 high BMI Monitoring/Goals Nutrition problem monitoring total energy intake, level of knowledge/skill, total PRO intake, total CHO intake, weight and oral fluids Outcome progress progressing Learning/Education Readiness to learn good Stages of change action Educational materials provided Yes Most Recent Diabetes Results: No Data to Display [facility] Medical History (Updated 03/25/23 @ 11:04 by MONICA Ren) Depression Cellulitis of right leg Left leg swelling Surgical History (Updated 03/25/23 @ 10:57 by MONICA Ren) H/O wisdom tooth extraction Family History Mother COPD (chronic obstructive pulmonary disease) Seizure Father No problems noted. Sister No problems noted. 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 Educational requirements have been completed. Reviewed vitamin supplementation and commitment to protein shake for several months post surgery. Encouraged communication with office as needed Telehealth Telehealth Location of provider rendering services: practice address Location of patient: address on file Patient Identification confirmed using: Name, : Yes Telehealth method: voice only Patient verbally consented to treatment: Yes Patient verbally consented to billing insurance company: Yes Patient informed of any privacy concerns related to visit: Yes Minutes spent on Phone/Video with Pt.: 15 Coding Level of Care Code Nutr Indiv Subseq ([id number]) Diagnoses Morbid obesity E66.01 Time Spent (min) 15
== END 2023-04-30 14:54 | disposition home or self-care (01) ==
LOC: HO.HBS 14:51
PROVIDERS: PCP Nurse Practitioner Family; Visit Provider Dietitian, Registered
DX: E66.01 Morbid (severe) obesity due to excess calories (principal)

== ENCOUNTER → 2023-04-30 14:50 | Outpatient (BNVA) | payer OTHER, SELFPAY | PROVIDERS: PCP Nurse Practitioner Family; Visit Provider Dietitian, Registered | DX: E66.01 Morbid (severe) obesity due to excess calories (principal) | CPT/HCPCS: 97803 ==

== ENCOUNTER 2023-05-04 14:49 | Outpatient (AMB) | payer OTHER, SELFPAY ==
--- NOTE | 2023-05-04 13:55 | MHC.WMTHER ---
Intake Intake Visit Reasons: VIDEO BH F/U Allergies No Known Allergies [No Known Allergies*] Allergy (Verified 03/25/23 10:32) PFS Medical History (Updated 03/25/23 @ 11:04 by MONICA Ren) Depression Cellulitis of right leg Left leg swelling Surgical History (Updated 03/25/23 @ 10:57 by MONICA Ren) H/O wisdom tooth extraction Family History Mother COPD (chronic obstructive pulmonary disease) Seizure Father No problems noted. Sister No problems noted. 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 We reviewed potential barriers based on initial assessment. Chito talked about his recent hospital admission, struggles with pain at night in his back, needing surgery but also having to loose weight first. Pt is looking to have weight loss surgery to help improve his health and quality of life. He reported that there is many things he wants to do and cannot because of his weight. Pt stated that he was in therapy years ago and grew up in the foster care system. Also was taking medication in the past for depression. He denied a history of problems with drugs or alcohol although drinks socially on occasion. Presenting Concerns Referral Source provider Reason for referral weight loss surgery evaluation Precipitating Event obesity Living Situation Current Living Situation Rent At risk of losing current housing? No Satisfied with current living situation? Yes Comments Pt rents and has three roommates. Food/Weight/Diet Expectations of change weight loss and maintenance History/Relationship with food Pt stated that he would eat out of boredom, depression, while watching TV, playing video games especially at night on sweets. He reported mostly eating fast food and he does not know how to cook. History/Relationship with weight Pt is currently at his heaviest Binge Eating Do you frequently eat large amounts of food in short periods of time, not feeling physically hungry? No Do you feel out of control when you eat a large amount of food in a short period of time? Yes Do you eat large amounts of food rapidly and typically alone? No Night Eating Do you wake up at least once during the night to eat? No If you wake up in the night, do you find that it is necessary to eat something in order to fall back asleep? No Do you have little or no appetite in the morning and feel very hungry in the evening, often overeating between dinner and when you go to bed? Yes Social History Family history and relationship Pt stated that he is single with no children although in a relationship. He reported having no family and growing up in foster care. Parental/Familial plugman obligations none Developmental history and status no issues known Social support pt denied any family support, he has a girlfriend Cultural/Ethnic information Legal Involvement and History Current or historical involvement with the legal system? no legal problems reported Education Highest grade completed trade Preferred learning style Auditory, Verbal, Written, Learn by doing and Visual Currently enrolled in educational program? No Interested in further educational program? 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 No Meaningful activities video games, TV Financial Situation Describe current financial situation Comfortable Financial assistance? None Service Service? No Mental Health and Addiction Treatment Current/Past substance abuse? No Current/Past addictive behavior concerns? No Medical and Physical Health Summary Physical exam in the last year? Yes Pain Screening Current pain? No Pain in the last few months? No Medications Is the patient compliant with medications? Not applicable Does the patient have Woodson Guardian in place? Not applicable Does the patient use complimentary health approaches? No Trauma/Abuse History History of trauma? Yes Assessment & Plan Assessment & Plan (1) Dysthymia: Code(s): F34.1 - Dysthymic disorder (2) Morbid obesity: Code(s): E66.01 - Morbid (severe) obesity due to excess calories Plan Pt is a 32 year old single male who presented initially via zoom for intake needed for weight loss surgery. Pt reported struggling with his weight since childhood being in the foster care system. He described depression, most likely trauma as well however no specifics mentioned. His mother did pass away a few years ago after he started to develop a rel. with her. Pt has low motivation, energy, and limited supports in his life. Today he reports everything is going well and no struggles. He did agree to communicate with this manual writer due to initial concerns. He is cleared for surgery when ready. Telehealth Telehealth Location of provider rendering services: other Location of patient: other Patient Identification confirmed using: Name, : Yes Telehealth method: voice only Patient verbally consented to treatment: Yes Patient verbally consented to billing insurance company: Yes Patient informed of any privacy concerns related to visit: Yes Minutes spent on Phone/Video with Pt.: 10 Coding Level of Care Code Tele Psytx 30 mins (12622) Diagnoses Dysthymia F34.1 Morbid obesity E66.01 Time Spent (min) 10
== END 2023-05-04 15:00 ==
PROVIDERS: PCP Nurse Practitioner Family; Visit Provider Counselor Mental Health
DX: F34.1 Dysthymic disorder (principal); E66.01 Morbid (severe) obesity due to excess calories
CPT/HCPCS: 90832

== ENCOUNTER → 2023-05-04 14:49 | Outpatient (BNVA) | payer OTHER, SELFPAY | PROVIDERS: PCP Nurse Practitioner Family; Visit Provider Counselor Mental Health | DX: F34.1 Dysthymic disorder (principal); E66.01 Morbid (severe) obesity due to excess calories ==

== ENCOUNTER 2023-05-14 10:00 | Outpatient (AMB) | payer OTHER, SELFPAY ==
--- NOTE | 2023-05-14 09:00 | MHC.OFFVISWM ---
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 He has be en working 60 - 70 hours per week ov er 6 d for the las t month and has no t been exercising or eating properly . 1 meal and 1 sha ke per day only. S ays the only bar t hat he likes are t he Fit Crunch bars and he can't affo rd them now. We di scussed how this i s dangerous for sara m and that he can just have 4 shakes and 1 meal per da y for now. Meal p symone - not followin g our plan Not exe rcising Pre op wo rk up completed as follows: [facility] clas ses - 12/01 BH appt s - needs follow up, now cleared RD appts - ne eds follow up, now cleared H pylori - negative Labs - anemic, Vit A, B1 and D deficient C XR -normal ECG - N ormal sinus rhythm Possible Inferior infarct , age und etermined Abnormal ECG When compared with ECG of P-2016 19:47, No s ignificant change was found ECHO an d Stress tests - 1 --- not done, was in hospital UL -hepatosplenom egaly - 19.5 and 1 4.6 cms UGI - 02/26 0, rescheduled to 06/02/23, was in hos pital with celluli tis PFSH Medical History (Updated 03/25/23 @ 11:04 by MONICA Ren) Depression Cellulitis of right leg Left leg swelling Surgical History (Updated 03/25/23 @ 10:57 by MONICA Ren) H/O wisdom tooth extraction Family History Mother COPD (chronic obstructive pulmonary disease) Seizure Father No problems noted. Sister No problems noted. 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 Meal plan until then: 7am/10am/1pm/4pm and 7pm - 4 shakes and 1 meal per day Exercise - walk for 30 minutes continuously every day. Needs to send me weekly weights and updates on Fridays. UGI on 06/02/23, then pre op work up complete. Patient is still morbidly obese and is not considered stable at this time. I spent 24 minutes in total speaking with the patient via video conference counseling , reviewing records and charting in patients chart. . Telehealth Telehealth Location of provider rendering services: practice address Location of patient: address on file Patient Identification confirmed using: Name, : Yes Telehealth method: video Patient verbally consented to treatment: Yes Patient verbally consented to billing insurance company: Yes Patient informed of any privacy concerns related to visit: Yes Coding Level of Care Code Tele Est Pt Level 4 (17893) Diagnoses Morbid obesity E66.01
[2023-05-14 10:06] VITALS: BMI 68.3
== END 2023-05-14 10:22 | disposition home or self-care (01) ==
LOC: HO.HBS 10:17
PROVIDERS: PCP Nurse Practitioner Family; Visit Provider Physician Assistant
DX: E66.01 Morbid (severe) obesity due to excess calories (principal)
CPT/HCPCS: 99214

== ENCOUNTER → 2023-05-14 10:00 | Outpatient (BNVA) | payer OTHER, SELFPAY | PROVIDERS: PCP Nurse Practitioner Family; Visit Provider Physician Assistant ==

== ENCOUNTER 2023-06-11 10:30 | Outpatient (AMB) | payer OTHER, SELFPAY ==
--- NOTE | 2023-06-11 10:28 | A.OFFVIS_ITS ---
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 Keeps saying it should slow down soon. Meal plan - 4 shakes per day every day. 1 meal of 10 forks each of vegetables and chicken breast or fish - misses dinner 1-2 month. Gingerale sometimes Drinking 2 beers per day. Exercise - none Pre op work up completed as follows: [facility]L classes - 12/01 BH appts - needs follow up, now cleared RD appts - needs follow up, now cleared H pylori - negative Labs - anemic, Vit A, B1 and D deficient CXR -normal ECG - Normal sinus rhythm Possible Inferior infarct , age undetermined Abnormal ECG When compared with ECG of 20-JAN-2017 19:47, No significant change was found ECHO and Stress tests - 02/18 --- not done, was in hospital - still not scheduled ULS -hepatosplenomegaly - 19.5 and 14.6 cms UGI - 03/25, was in hospital with cellulitis rescheduled to 06/02 - radiology rescheduled it 06/15/23. [facility] Medical History (Updated 03/25/23 @ 11:04 by MONICA Ren) Depression Cellulitis of right leg Left leg swelling Surgical History (Updated 03/25/23 @ 10:57 by MONICA Ren) H/O wisdom tooth extraction Family History Mother COPD (chronic obstructive pulmonary disease) Seizure Father No problems noted. Sister No problems noted. 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 No changes to meal plan Exercise - states he still does not have the time or energy. MUST stop drinking 2 beers daily - switch to seltzer and relaxation. Adan is helping him schedule his cardiac testing. UGI next week Next appt with me in 3 weeks. Patient is still morbidly obese and is not considered stable at this time. I spent 28 minutes in total speaking with the patient via video conference terry hillman , reviewing records and charting in patients chart. . (2) Abnormal ECG: Code(s): R94.31 - Abnormal electrocardiogram [ECG] [EKG] Plan: ECHO and stress test are being scheduled Telehealth Telehealth Location of provider rendering services: practice address Location of patient: address on file Patient Identification confirmed using: Name, : Yes Telehealth method: video Patient verbally consented to treatment: Yes Patient verbally consented to billing insurance company: Yes Patient informed of any privacy concerns related to visit: Yes Coding Level of Care Code Tele Est Pt Level 4 (25346) Diagnoses Morbid obesity E66.01 Abnormal ECG R94.31
[2023-06-11 10:36] VITALS: BMI 67.5
== END 2023-06-11 10:50 | disposition home or self-care (01) ==
LOC: HO.HBS 10:46
PROVIDERS: PCP Nurse Practitioner Family; Visit Provider Physician Assistant
DX: E66.01 Morbid (severe) obesity due to excess calories (principal); R94.31 Abnormal electrocardiogram [ECG] [EKG]
CPT/HCPCS: 99214

== ENCOUNTER → 2023-06-11 10:30 | Outpatient (BNVA) | payer OTHER, SELFPAY | PROVIDERS: PCP Nurse Practitioner Family; Visit Provider Physician Assistant ==

== ENCOUNTER 2023-06-15 10:21 | Outpatient (REF) | payer OTHER, SELFPAY ==
--- NOTE | ~2023-06-15 | FL_ITS ---
EXAMINATION: XR FLUOROSCOPY UPPER GI WITH AIR CLINICAL INFORMATION: Preop evaluation prior to bariatric surgery COMPARISON: None TECHNIQUE: Fluoroscopic air contrast upper GI examination was performed utilizing standard techniques with thin and thick barium and effervescent granules. Numerous spot images were obtained. FINDINGS: Dual and single contrast images of the esophagus demonstrate normal caliber, contour, and mucosal pattern. No evidence of stricture, mass, or ulcerations identified. Esophageal peristalsis was normal. No evidence of hiatus hernia identified. Mild gastroesophageal reflux is seen in the distal esophagus. Dual contrast and single contrast images of the stomach demonstrated normal contour and mucosal pattern without evidence of mass, ulceration, or other abnormality. Contrast freely passed into the gastric antrum and duodenal bulb without delay. Single and air-contrast images of the duodenal bulb demonstrate no abnormality. The duodenal sweep has a normal appearance, course, and mucosal fold appearance. No malrotation. The imaged proximal jejunum has a normal fold pattern and caliber. FLUOROSCOPY TIME: 3 minutes 6 seconds Number of Spot Images: 14 Number of Cine: 6 DOSE AREA PRODUCT: 2966 uGy-m2 (microgray-meter squared) FL/FL upper GI w air IMPRESSION: Mild gastroesophageal reflux, otherwise unremarkable upper GI series This procedure was performed by Inocencio Vázquez PA-C, and supervised by Dr. Beltran
== END 2023-06-15 10:22 | disposition home or self-care (01) ==
LOC: HO.XRAY 10:21
PROVIDERS: Visit Provider Physician Assistant
DX: Z01.818 Encounter for other preprocedural examination (principal); E66.01 Morbid (severe) obesity due to excess calories
CPT/HCPCS: 74246

== ENCOUNTER → 2023-06-15 10:23 | Outpatient (BNV) | payer OTHER, SELFPAY | PROVIDERS: Visit Provider Physician Assistant Surgical | DX: E66.01 Morbid (severe) obesity due to excess calories (principal); Z01.818 Encounter for other preprocedural examination | CPT/HCPCS: 74246 ==

== ENCOUNTER 2023-07-09 11:00 | Outpatient (AMB) | payer OTHER, SELFPAY ==
--- NOTE | 2023-07-09 10:57 | MHC.OFFVISWM ---
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 TBWL is 29.5 lbs or 6.5%. No weight loss since February 2023. Meal plan: Skips breakfast if running late and then has coffee and hash browns. Not following the meal plan or using shakes regularly. Not exercising Still drinking 2 beers after work each day. Pre op work up completed as follows: [facility] classes - 12/01 BH appts - needs follow up, now cleared RD appts - needs follow up, now cleared H pylori - negative Labs - anemic, Vit A, B1 and D deficient CXR -normal ECG - Normal sinus rhythm Possible Inferior infarct , age undetermined Abnormal ECG When compared with ECG of 20-JAN-2017 19:47, No significant change was found ECHO and Stress tests - 02/18 --- not done, was in hospital - re scheduled to 07/16/23 ULS -hepatosplenomegaly - 19.5 and 14.6 cms UGI - mild reflux only PFSH Medical History (Updated 03/25/23 @ 11:04 by MONICA Ren) Depression Cellulitis of right leg Left leg swelling Surgical History (Updated 03/25/23 @ 10:57 by MONICA Ren) H/O wisdom tooth extraction Family History Mother COPD (chronic obstructive pulmonary disease) Seizure Father No problems noted. Sister No problems noted. 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 He understands that if he does not lose a significant amount of weight his medical condition will only worsen over time. He must decide now whether he is ready to commit to following our meal and exercise plans. He will text me in a few days to let me know what he has decided. He knows that his SWL appts will be with Dr Galvan from now on. Patient is still morbidly obese and is not considered stable at this time. I spent 15 minutes in total speaking with the patient via video conference counseling , reviewing records and charting in patients chart. . (2) Abnormal ECG: Code(s): R94.31 - Abnormal electrocardiogram [ECG] [EKG] Plan: cards testing on 07/15 Telehealth Telehealth Location of provider rendering services: practice address Location of patient: address on file Patient Identification confirmed using: Name, : Yes Telehealth method: video Patient verbally consented to treatment: Yes Patient verbally consented to billing insurance company: Yes Patient informed of any privacy concerns related to visit: Yes Coding Level of Care Code Tele Est Pt Level 3 (74398) Diagnoses Morbid obesity E66.01 Abnormal ECG R94.31
[2023-07-09 11:03] VITALS: BMI 67.5
== END 2023-07-09 11:31 | disposition home or self-care (01) ==
LOC: HO.HBS 11:30
PROVIDERS: PCP Physician Assistant; Visit Provider Physician Assistant
DX: E66.01 Morbid (severe) obesity due to excess calories (principal); R94.31 Abnormal electrocardiogram [ECG] [EKG]
CPT/HCPCS: 99213

== ENCOUNTER → 2023-07-09 11:00 | Outpatient (BNVA) | payer OTHER, SELFPAY | PROVIDERS: PCP Physician Assistant; Visit Provider Physician Assistant | DX: E66.01 Morbid (severe) obesity due to excess calories (principal); R94.31 Abnormal electrocardiogram [ECG] [EKG] ==

== ENCOUNTER → 2023-07-16 08:01 | Outpatient (REF) | payer OTHER, SELFPAY ==
--- NOTE | ~2023-07-16 | NM_ITS ---
Lexiscan Myocardial perfusion study Indication: Preoperative cardiac evaluation Technique: The patient was brought in for a Lexiscan perfusion study on 07/16/2023 and was injected 0.4 mg of Lexiscan intravenously. Within a minute of this injection 45 mCi of sestamibi was given intravenously. Images were obtained using the SPECT gamma camera interlaced with the gating device. Images were obtained in supine position. Resting perfusion study was performed on 08/06/2023. Patient was administered 45 mCi of sestamibi intravenously at rest. Images were then obtained in supine position. Images were processed with the software and compared side to side in short axis, horizontal long axis and vertical long axis views. Total DLP 206mGy-cm. Findings: Raw acquisition reviewed. Study quality seems suboptimal which could be related to body habitus. The stress perfusion study showed diminished tracer uptake in the mid to distal inferior wall; basal part of anterolateral wall. With CT attenuation correction there is improvement suggestive of soft tissue as well as diaphragmatic attenuation artifact. The gated study shows normal LV systolic function with calculated LVEF of 61%. LV cavity is normal in size. The gated study shows normal wall thickening and contraction of segments. Resting study shows diminished tracer uptake along the inferior wall. There is improvement with CT attenuation correction suggestive of diaphragmatic attenuation artifact. Gating at rest reveals normal wall motion with ejection fraction at 54%. The findings are consistent with perfusion defects in the inferior wall as well as anterolateral wall, suggestive of attenuation artifact. NM/NM cardiolite stress test Impression: 1. Myocardial perfusion imaging study shows no clear evidence of any ischemia or infarction. Probably normal myocardial perfusion. 2. Gated LVEF is 61% during stress and 54% during rest. 3. Transient ischemic dilatation not present. EKG component of the test reported separately.
--- NOTE | 2023-07-16 08:04 | CA_ITS ---
Acquisition Time: 2023-07-16 08:00:55 Total Exercise Time: 00:02:00 Test Indications: Pre-Op Evaluation Medications: NONE Protocol: LEXISCAN Max HR: 100 BPM 53% of Pred: 188 BPM Max BP: 134/072 mmHG Max Work Load: 1.0 METS Pharmacological stress test with Lexiscan injection while sitting and marching in place, without anginal symptoms, without arrhythmais, with normotensive response to injection, with nondiagnoisitic EKGs. Nuclear images pending. Test revieed with Dr. Pedersen. Referred By: rAaceli Knight Overread By: Aysha Beltran
== END ==
LOC: HO.CARD 08:01
PROVIDERS: Visit Provider Physician Assistant
DX: R94.31 Abnormal electrocardiogram [ECG] [EKG] (principal); E66.01 Morbid (severe) obesity due to excess calories
CPT/HCPCS: 78452; 93017; A9500; J0280; J2785

== ENCOUNTER → 2023-07-16 08:04 | Outpatient (BNV) | payer OTHER, SELFPAY | PROVIDERS: Visit Provider Nurse Practitioner | DX: Z01.810 Encounter for preprocedural cardiovascular examination (principal) | CPT/HCPCS: 78452; 93016; 93018 ==

== ENCOUNTER 2023-08-30 07:54 | Outpatient (AMB) | payer OTHER, SELFPAY ==
--- NOTE | 2023-08-30 12:13 | MHC.OFFVISWM ---
Intake Visit Reasons: TV Consult/Transfer Araceli Allergies No Known Allergies [No Known Allergies*] Allergy (Verified 08/30/23 12:13) Medication List - Last Reconciled 08/30/23 by Ruddy Blank MD albuterol 90 mcg/actuation mcg inhalation cholecalciferol (vitamin D3) 50 mcg PO DAILY iron,carbonyl-vitamin C 65 mg iron- 125 mg (Vitron-C) 1 tab PO BEDTIME thiamine HCl (vitamin B1) 50 mg PO DAILY vitamin A palmitate 3,000 mcg PO DAILY 2 weeks zinc gluconate 10 mg PO DAILY HPI HPI TV Consult/Transfer Araceli: Details: Start time: 11.51am, End time: 12.36pm ?I spent 40 minutes speaking with the patient on the phone plus an additional 5 minutes reviewing and updating records for a total of 45 minutes HPI Comments Details: Overall weight loss: 19.7lbs, or 4.4% TBWL Is doing 4 Premier protein shakes (2 scoops in water), 2 fit Crunch bars and one meal (6-8oz meat and 6-8 oz vegetables) Exercise: none PFSH Medical History (Updated 03/25/23 @ 11:04 by MONICA Ren) Depression Cellulitis of right leg Left leg swelling Surgical History (Updated 03/25/23 @ 10:57 by MONICA Ren) H/O wisdom tooth extraction Family History Mother COPD (chronic obstructive pulmonary disease) Seizure Father No problems noted. Sister No problems noted. 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 Current occupational exposures/hazards: Yes Cognitive needs: No Hearing needs: No Vision needs: Yes Telehealth Telehealth Telehealth Platform: Telephone Location of provider rendering services: practice address Location of patient: address on file Patient Identification confirmed using: Name, : Yes Telehealth method: voice only Patient verbally consented to treatment: Yes Patient verbally consented to billing insurance company: Yes Patient informed of any privacy concerns related to visit: Yes Minutes spent on Phone/Video with Pt.: 45 Assessment & Plan Assessment & Plan (1) Morbid obesity: Code(s): E66.01 - Morbid (severe) obesity due to excess calories Category: Medical Plan: 1. Plan for lap sleeve gastrectomy. If diaphragmatic or ventral hernias are present at time of surgery, these will be repaired laparoscopically as well. 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 I emphasized the importance of close follow-up, adherence to instructions and good communication. 2. New plan: Premier shake (ONE scoop in 8oz water) 7am-9am Fit Crunch protein bar at 10am-12pm Premier shake (ONE scoop in 8oz water) at 1pm-3pm Fit Crunch protein bar at 4pm-6pm Dinner at 7pm (14 forks of protein and 14 forks of salad or vegetables) Half Fit Crunch protein bar at 9pm-10pm 3. Purchase a rowing machine. Goal is to burn 2000 calories per week on the rowing machine 4. Meal to include lean meat (beef, fish, pork, turkey, chicken), or macedonian yogurt, or egg whites, or beans with a salad with olive oil and fruits (berries, pears, apples, kiwi). Avoid salt, breads, potatoes, rice, pasta, desserts. 5. Each shake would be drunk slowly, like coffee in a period of 2 hours. 6. Cut each bar in 4 pieces and eat each piece in 30min ?to make each bar last 2 hours. 7. I emphasized the importance of measuring accurately the food portion and measure it when serving the food in plate 8. The meal portions include 14 full-size forks of meat and 14 full-size forks of salad. You always eat the meat portion but you can replace up to 7 forks for salad/vegetables with rice, potatoes or pasta, or a fruit ?if you like. The less you do it the better weight loss will be. 9. One full-size fork is what it can be scooped on the fork without falling aside and not what can be bit with the fork. Use regular forks like those you find in a typical restaurant. 10. Send me weight measurements weekly on Tuesdays
== END 2023-08-30 12:37 | disposition home or self-care (01) ==
LOC: HO.HBS 07:54
PROVIDERS: PCP Nurse Practitioner Family; Visit Provider Surgery
DX: E66.01 Morbid (severe) obesity due to excess calories (principal)
CPT/HCPCS: 99215

== ENCOUNTER → 2023-08-30 07:54 | Outpatient (BNVA) | payer OTHER, SELFPAY | PROVIDERS: PCP Nurse Practitioner Family; Visit Provider Surgery ==

== ENCOUNTER 2025-02-14 13:47 | Outpatient (AMB) | payer OTHER, SELFPAY ==
--- NOTE | 2025-02-14 13:58 | MHC.PC.OV ---
Vital Signs 02/14/25 14:05 Height 5 ft 7.32 in Weight 500 lb 8 oz BMI 77.6 BP 122/73 Blood Pressure Location Rt brachial Position Sitting Respiration 16 Pulse 78 Pulse Source Pulse Oximeter Temp 98 F Temp Source Oral Pulse Oximetry (%) 95 Oxygen Delivery Method Room Air Intake Visit Reasons: LAB INTERN // Nerve problems Spring Tester Required: No Accompanied by: Self / Same As Patient Allergies No Known Allergies (No Known Allergies*) Allergy (Verified 02/14/25 14:05) Medication List - Last Reconciled 02/14/25 by Khoi Schmitt MD albuterol 90 mcg/actuation mcg inhalation ibuprofen 1,600 mg PO TID nystatin 1 appl topical BID tirzepatide (weight loss) (Zepbound) 2.5 mg (0.5 mL) subcut QWEEK Tobacco use date assessed: 02/14/25 Dental Screening Dental Screen Date: 02/14/25 Did you have a dental visit in the last 12 months?: Yes Did you have a dental problem in the last 6 months where you did not have access to dental care?: No Was dental information given to patient?: Patient has dentist HPI HPI Comments History of Present Illness Details Consent Patient was informed and verbally consented to the use of an ambient scribe for clinic note documentation during this visit. History of Present Illness The patient is a 34-year-old male presenting with multiple health concerns, including obesity, sleep apnea, and left knee osteoarthritis. Obesity: The patient has been struggling with obesity, which has impacted his ability to undergo knee surgery and manage other health conditions such as sleep apnea and erectile dysfunction. He has attempted weight loss through a keto diet with his girlfriend, who has undergone weight loss surgery twice. The patient has not been under the care of a dietitian or medical weight management program recently due to insurance issues. Sleep Apnea: The patient has severe sleep apnea and uses a CPAP machine, with follow-ups every six months via telehealth with a CPAP specialist. He has not been prescribed medications like Mounjaro or Zepbound for weight management, which could potentially aid in alleviating his sleep apnea symptoms. Asthma: The patient has a history of asthma and uses an albuterol inhaler. He has recently stopped vaping, which he believes has contributed to his respiratory issues. Erectile Dysfunction: The patient reports erectile dysfunction, which he attributes to his obesity. Left Knee Osteoarthritis: The patient has left knee osteoarthritis due to a lack of ACL and meniscus, resulting in severe arthritis and pain. He has been advised to lose weight before surgical intervention can be considered. Sciatica: The patient experiences sciatica, with pain radiating down his left leg, which he attributes to his knee condition. He attends chiropractic sessions three times a week for hip alignment. Phimosis: The patient reports phimosis, causing irritation and difficulty with hygiene. Yeast Infection: The patient has a yeast infection, with symptoms occurring behind his knees and under his toes. He has been prescribed nystatin cream for treatment. 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 - Substance Use: Former smoker, now vapes but has recently stopped. - Exercise: Attempting weight loss through a keto diet with his girlfriend. Review of Systems - Respiratory: Reports dyspnea, uses albuterol inhaler. Denies recent exacerbations. - Musculoskeletal: Reports left knee pain and sciatica. Denies other joint pain. - Genitourinary: Reports erectile dysfunction and phimosis. - Dermatological: Reports yeast infection symptoms behind knees and under toes. 10-point ROS reviewed and negative except as noted in HPI Past Medical History - Obesity - Sleep apnea - Asthma - Erectile dysfunction - Left knee osteoarthritis - Sciatica - Phimosis - Yeast infection Health Maintenance - Weight management: Referral to medical weight management clinic and aeronautics teacher for obesity management. - Exercise: Recommended water aquatics to reduce knee impact while promoting weight loss. - Smoking cessation: Discussed nicotine replacement options such as gum. Physical Exam General: Well-appearing, in no acute distress. morbidly obese Vital signs: Within normal limits. HEENT: Normocephalic, atraumatic. PERRLA, EOMI. Conjunctiva clear, sclera anicteric. Oropharynx clear, mucous membranes moist. TMs intact bilaterally. Neck: Supple, no lymphadenopathy, no thyromegaly, no JVD or carotid bruits. Cardiovascular: RRR, normal S1/S2, no murmurs, rubs, or gallops. Peripheral pulses 2+ and symmetric. No edema. Respiratory: Lungs clear to auscultation bilaterally, no wheezes, rales, or rhonchi. Normal effort. Abdomen: Soft, non-tender, non-distended. Normoactive bowel sounds. No hepatosplenomegaly, no masses. MSK: Limited range of motion in the left knee due to severe arthritis and absence of ACL and meniscus. Normal gait otherwise. Skin: Warm, dry, intact. No rashes, lesions, or pallor. Yeast infection noted behind knees and under toes. Neuro: Alert and oriented x3. Cranial nerves II-XII intact. Strength 5/5 throughout. Sensation intact. Reflexes 2+ symmetric. Normal coordination and gait. Psych: Appropriate mood and affect. Normal judgment and insight. Plan 1. Obesity - Referral to medical weight management clinic and aeronautics teacher for comprehensive weight loss plan. - Recommended water aquatics to facilitate weight loss with minimal knee impact. 2. Sleep Apnea - Continue CPAP therapy with regular follow-ups every six months. - Consideration of weight loss medications like Zepbound to potentially alleviate symptoms. 3. Asthma - Continue use of albuterol inhaler as needed. - Smoking cessation support with nicotine gum to improve respiratory health. 4. Erectile Dysfunction - Address underlying obesity as a contributing factor. 5. Left Knee Osteoarthritis - Weight loss recommended prior to surgical intervention. - Referral to physical therapy for knee strengthening exercises. 6. Sciatica - Continue chiropractic sessions for hip alignment. 7. Phimosis - Consider circumcision after weight loss if hygiene issues persist. 8. tobacco use disorder start nicotine gum Discussion Notes During the consultation, we discussed the patient's multiple health concerns, including obesity, sleep apnea, and knee osteoarthritis. I recommended a comprehensive weight management plan, including referrals to a aeronautics teacher and medical weight management clinic. We also discussed the potential benefits of water aquatics for weight loss and knee pain management. For asthma, I advised smoking cessation support with nicotine gum. We considered the use of weight loss medications like Zepbound to aid in managing sleep apnea. Additionally, I prescribed nystatin cream for the yeast infection and discussed the possibility of circumcision for phimosis after weight loss. Patient Instructions - Follow up with the medical weight management clinic and aeronautics teacher for weight loss support. - Engage in water aquatics to aid weight loss and reduce knee pain. - Use albuterol inhaler as needed for asthma symptoms. - Apply nystatin cream to affected areas as prescribed. - Consider nicotine gum to support smoking cessation efforts. Medical Decision Making The patient's primary concerns include obesity, sleep apnea, and knee osteoarthritis. The decision to refer the patient to a medical weight management clinic and aeronautics teacher was based on the need for a structured weight loss program to address these issues. Water aquatics were recommended to facilitate weight loss while minimizing knee impact. For asthma, smoking cessation was prioritized, with nicotine gum offered as support. The potential use of Zepbound was considered to aid in weight loss and improve sleep apnea symptoms. Nystatin cream was prescribed for the yeast infection, and circumcision was discussed as a future option for phimosis management. Total time spent caring for the patient today was 30 minutes. This includes time spent before the visit reviewing the chart, time spent documenting, and time spent reviewing laboratory results, diagnostic imaging, medications, performing a medically necessary evaluation, counseling on diagnoses, care coordination, ordering appropriate tests, ordering appropriate medications. PENDING SALE TO [facility] Medical History (Updated 02/14/25 @ 14:29 by Khoi Schmitt MD) Severe obstructive sleep apnea Depression Cellulitis of right leg Left leg swelling Surgical History H/O wisdom tooth extraction Family History Mother COPD (chronic obstructive pulmonary disease) Seizure Father No problems noted. Sister No problems noted. 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 1. Little interest or pleasure in doing things: nearly every day 2. Feeling down, depressed, or hopeless: more than half the days 3. Trouble falling or staying asleep, or sleeping too much: nearly every day 4. Feeling tired or having little energy: nearly every day 5. Poor appetite or overeating: nearly every day 6. Feeling bad about yourself - or that you are a failure or have let yourself or your family down: nearly every day 7. Trouble concentrating on things, such as reading the newspaper or watching television: several days 8. Moving or speaking so slowly that other people could have noticed. Or the opposite - being so fidgety or restless that you have been moving around a lot more than usual: not at all 9. Thoughts that you would be better off or of hurting yourself in some way: not at all Total score: 18 Source: Developed by Drs. Durga Nath, Ela Chaves, Dav Davis and colleagues, with an educational venkatesh from [employer]. Thrive Questionnaire Date Thrive assessed: 02/14/25 I am a: Patient What is your living situation today?: I have a place to live, but I am worried about losing it in the future Within the past 12 months, did the food you bought not last and you didn't have the money to get more?: Never true Within the past 12 months, did you worry whether your food would run out before you got money to buy more?: Never true Do you have trouble paying for medicines?: No Do you have trouble getting transportation to medical appointments?: No Do you have trouble paying your heating and electricity bill?: Yes Do you have trouble taking care of your child, family member or friend?: No Do you have trouble with day-to-day activities such as bathing, preparing meals, shopping, managing finances, etc.?: Yes Are you currently unemployed and looking for a job?: No Are you interested in more education?: No Please select the resources that you would like help with: Housing/M[facility] and Utilities Currently or been in a relationship where the following occur: No concerns reported THRIVE Score: 2 AUDIT C Alcohol Use Questionnaire (AUDIT-C) 1. How often do you have a drink containing alcohol?: Monthly or less 2. How many drinks containing alcohol do you have on a typical day when you are drinking?: 7 to 9 3. How often do you have six or more drinks on one occasion?: Less than monthly Total Score: 5 REZA-7 AMB Questionnaire REZA-7 Date REZA - 7 assessed: 02/14/25 Feeling nervous, anxious, or on edge: 3 = Nearly every day Not being able to stop or control worryin = Nearly every day Worrying too much about different things: 3 = Nearly every day Trouble relaxin = Nearly every day Being so restless that it is hard to sit still: 2 = More than half the days Becoming easily annoyed or irritable: 3 = Nearly every day Feeling afraid as if something awful might happen: 1 = Several days Total REZA-7 score (0-4 normal; 5-9 mild; 10-14 moderate; 15-21 severe): 18 Source: Developed by Drs. Durga Nath, Ela Chaves, Dav Davis and colleagues, with an educational venkatesh from [employer]. Physical exam (Primary Care) Vital Signs: Last Vital Signs Temp 98 F 02/14/25 14:05 Pulse 78 02/14/25 14:05 Resp 16 02/14/25 14:05 BP 122/73 02/14/25 14:05 Pulse Ox 95 02/14/25 14:05 Oxygen Delivery Method Room Air 02/14/25 14:05 BMI result Body Mass Index 77.6 Tobacco/Smoking Status: Tobacco use Status Tobacco use date assessed 02/14/25 02/14/25 14:04 Patient Tobacco Use Status Former Tobacco user 02/14/25 14:12 Tobacco use type Cigarette 02/14/25 14:04 e-Cigarette/Vaping Use Currently Using 02/14/25 14:12 PHQ-9: PHQ-9 Score PHQ-9: Total score 18 02/14/25 14:04 Thrive Assessment: Date of Thrive Assessment Date Thrive assessed 02/14/25 02/14/25 14:04 Currently or been in a relationship where the following occur: No concerns reported Coding Level of Care Code New Pt Level 4 (49995) Diagnoses Morbid obesity E66.01 Severe obstructive sleep apnea G47.33 Asthma J45.909 Erectile dysfunction N52.9 Fungal infection of skin B36.9 Osteoarthritis of left knee M17.12 Sciatica, left side M54.32 Phimosis N47.1 Tobacco use Z72.0 Assessment & Plan Assessment & Plan (1) Morbid obesity: Code(s): E66.01 - Morbid (severe) obesity due to excess calories Category: Medical (2) Severe obstructive sleep apnea: Code(s): G47.33 - Obstructive sleep apnea (adult) (pediatric) Category: Medical (3) Asthma: Code(s): J45.909 - Unspecified asthma, uncomplicated Category: Medical (4) Erectile dysfunction: Code(s): N52.9 - Male erectile dysfunction, unspecified (5) Fungal infection of skin: Code(s): B36.9 - Superficial mycosis, unspecified (6) Osteoarthritis of left knee: Code(s): M17.12 - Unilateral primary osteoarthritis, left knee (7) Sciatica, left side: Code(s): M54.32 - Sciatica, left side (8) Phimosis: Code(s): N47.1 - Phimosis (9) Tobacco use: Code(s): Z72.0 - Tobacco use Plan Orders: Orders PT Evaluation and Treatment Today Z13.9 - Encounter for screening, unspecified Complete Blood Count Auto Diff Today Z13.9 - Encounter for screening, unspecified Comprehensive Met. Panel Today Z13.9 - Encounter for screening, unspecified Hemoglobin A1c Today Z13.9 - Encounter for screening, unspecified Hepatitis B Surface Antibody Today Z13.9 - Encounter for screening, unspecified Hepatitis B Surface Antigen Today Z13.9 - Encounter for screening, unspecified Hepatitis C Antibody Today Z13.9 - Encounter for screening, unspecified Magnesium Today Z13.9 - Encounter for screening, unspecified TSH reflex Free T4 Today Z13.9 - Encounter for screening, unspecified UA CC w/rflx Micro + Cult Today Z13.9 - Encounter for screening, unspecified Vitamin B12 and Folate Today Z13.9 - Encounter for screening, unspecified HIV Ab/Ag Today Z13.9 - Encounter for screening, unspecified Lipid Panel Today Z13.9 - Encounter for screening, unspecified Vitamin D 1,25 dihydroxy Today Z13.9 - Encounter for screening, unspecified Referrals Medical Weight Management Referral E66.01 - Morbid (severe) obesity due to excess calories Nutrition/Dietitian Referral E66.01 - Morbid (severe) obesity due to excess calories Nurse Navigator Referral E66.01 - Morbid (severe) obesity due to excess calories Medications: New tirzepatide (weight loss) (Zepbound) for 4 weeks 2.5 mg (0.5 mL) subcut QWEEK 2 mL 0RF G47.33 - Obstructive sleep apnea (adult) (pediatric) albuterol sulfate 90 mcg/actuation (Ventolin HFA) 2 puffs inhalation Q6H PRN 8.5 grams 0RF shortness of breath or wheezing J45.909 - Unspecified asthma, uncomplicated nystatin 1 appl topical BID 30 grams 0RF Discontinued cholecalciferol (vitamin D3) Discontinued Reason: Doctor's Order 50 mcg PO DAILY 30 caps 4RF zinc gluconate Discontinued Reason: Doctor's Order 10 mg PO DAILY 100 ea 0RF iron,carbonyl-vitamin C 65 mg iron- 125 mg (Vitron-C) Discontinued Reason: Doctor's Order 1 tab PO BEDTIME 30 tabs 4RF thiamine HCl (vitamin B1) Discontinued Reason: Doctor's Order 50 mg PO DAILY 30 tabs 4RF vitamin A palmitate Discontinued Reason: Doctor's Order 3,000 mcg PO DAILY 2 weeks 14 tabs 0RF
[2025-02-14 14:05] VITALS: BP 122/73; PULSE 78; RESP 16; TEMP 36.6; O2SAT 95; BMI 77.6
== END 2025-02-14 14:38 | disposition home or self-care (01) ==
LOC: HO.HMCFMS 13:48
PROVIDERS: PCP Nurse Practitioner Family; Visit Provider Student in an Organized Health Care Education/Training Program
DX: E66.01 Morbid (severe) obesity due to excess calories (principal); G47.33 Obstructive sleep apnea (adult) (pediatric); J45.909 Unspecified asthma, uncomplicated; N52.9 Male erectile dysfunction, unspecified; B36.9 Superficial mycosis, unspecified; M17.12 Unilateral primary osteoarthritis, left knee; M54.32 Sciatica, left side; N47.1 Phimosis; Z72.0 Tobacco use

== ENCOUNTER 2025-02-14 13:47 | Outpatient (REF) | payer OTHER, SELFPAY ==
[2025-02-14 18:26] LABS: MANUAL DIFF FLAG NO
[2025-02-14 18:44] LABS: Hematocrit 40.4 % (42.0-52.0); Hemoglobin 12.9 g/dl (14.0-18.0); Imm Gran Abs Auto 0.04 X10*3/uL (0.00-0.03); Imm Gran Pct Auto 0.3 % (0.0-0.4); Lymphocytes Absolute Auto 2.4 X10*3/uL (1.2-4.9); Mean Corpuscular HGB Conc 31.9 g/dl (31.0-36.0); Mean Corpuscular Hemoglobin 25.1 pg (27.0-33.0); Mean Corpuscular Volume 78.8 fL (80.0-98.0); NRBC Abs Auto 0.000 X10*3/uL (0.0-0.012); NRBC Pct Auto 0.0 /100WBC (0.0-0.2); Platelet Count 252 X10*3/uL (160-400); Red Blood Count 5.13 X10*6/uL (4.60-5.80); White Blood Count 12.3 X10*3/uL (4.8-10.8)
[2025-02-14 18:47] LABS: Appearance Urine Clear; Glucose Urine UA Negative (Negative); PH 5.5 (5.0-9.0); Specific Gravity - Urine 1.020 (1.005-1.025); UMIC TRIGGER UACC YES
[2025-02-14 18:52] LABS: UACC Culture Trigger YES
[2025-02-14 19:28] LABS: Alanine Aminotransferase 42 U/L (0-40); Albumin Level 4.6 g/dL (3.5-5.0); Alkaline Phosphatase 76 U/L (39-117); Anion Gap 13 (12-20); Aspartate Amino Transferase 32 U/L (5-37); Blood Urea Nitrogen 14 mg/dL (9-16); Calcium 9.5 mg/dL (8.4-10.2); Carbon Dioxide 24 mmol/L (22-29); Chloride 106 mmol/L (96-108); Cholesterol 152 mg/dL (<200); Estimated Glomerular Filt Rate > 60; HDL Cholesterol 48 mg/dL (>40); Magnesium 2.1 mg/dL (1.6-2.6); Potassium 4.2 mmol/L (3.3-5.1); Sodium 139 mmol/L (135-145); Total Protein 8.4 g/dL (6.5-8.0); Triglycerides 137 mg/dL (<150)
[2025-02-14 19:45] LABS: Folate 11.1 ng/mL (> or = 4.0); Vitamin B12 403 pg/mL (200-900)
[2025-02-15 03:59] LABS: HBS Num1 0.80 mIU/mL (0-7.99); HBsAGNum1 0.49 S/CO (0.00-0.99); HIV Num 1 0.05 S/CO (0.00-0.99); Hepatitis B Surface Antigen Negative (Negative); ~HepC Num1 0.23 S/CO (0.00-0.79); ~Hepatitis B Surface Antibody NONREACTIVE (Nonreactive); ~Hepatitis C Antibody Nonreactive (Nonreactive)
[2025-02-18 19:43] LABS: VITAMIN D (1,25 OH) D3 60 pg/mL; Vit D (1,25-Dihydroxy) Total 60 pg/mL (18-72); Vitamin D (1,25 OH) D2 <8 pg/mL
== END 2025-02-14 13:48 | disposition home or self-care (01) ==
LOC: HO.HKASLDS 13:47
PROVIDERS: PCP Student in an Organized Health Care Education/Training Program; Visit Provider Student in an Organized Health Care Education/Training Program
DX: E66.01 Morbid (severe) obesity due to excess calories (principal); M17.12 Unilateral primary osteoarthritis, left knee; J45.909 Unspecified asthma, uncomplicated; N52.9 Male erectile dysfunction, unspecified; M54.32 Sciatica, left side; N47.1 Phimosis; G47.33 Obstructive sleep apnea (adult) (pediatric); B36.9 Superficial mycosis, unspecified; F17.210 Nicotine dependence, cigarettes, uncomplicated; Z68.45 Body mass index [BMI] 70 or greater, adult
CPT/HCPCS: 36415; 80053; 80061; 81001; 82607; 82652; 82746; 83036; 83735; 84443; 85025; 86706; 86803; 87086; 87340; 87389; 99202

== ENCOUNTER → 2025-02-28 08:12 | Outpatient (BNVA) | payer OTHER, SELFPAY | PROVIDERS: PCP Student in an Organized Health Care Education/Training Program; Visit Provider Surgery | DX: M17.12 Unilateral primary osteoarthritis, left knee (principal); S83.512A Sprain of anterior cruciate ligament of left knee, initial encounter; M23.307 Other meniscus derangements, unspecified meniscus, left knee; M79.672 Pain in left foot; E66.01 Morbid (severe) obesity due to excess calories; Z68.45 Body mass index [BMI] 70 or greater, adult; D50.9 Iron deficiency anemia, unspecified; R73.03 Prediabetes; N39.0 Urinary tract infection, site not specified; J45.909 Unspecified asthma, uncomplicated | CPT/HCPCS: 99212 ==

== ENCOUNTER 2025-02-28 10:27 | Outpatient (AMB) | payer OTHER, SELFPAY ==
--- NOTE | 2025-02-28 10:30 | A.OFFPC_ITS ---
Vital Signs 02/28/25 10:34 Height 5 ft 7 in Weight 488 lb BMI 76.4 BP 135/78 Blood Pressure Location Lt femoral Position Sitting Respiration 20 Pulse 86 Pulse Source Monitor Temp 97.6 F Temp Source Oral Pulse Oximetry (%) 97 Oxygen Delivery Method Room Air Intake Visit Reasons: 2 wk f/u Intake Note: 2 week follow up Bingo Usher Required: No Accompanied by: Spouse Allergies No Known Allergies (No Known Allergies*) Allergy (Verified 02/28/25 10:34) Medication List - Last Reconciled 02/28/25 by Khoi Schmitt MD albuterol sulfate 90 mcg/actuation (Ventolin HFA) 2 puffs inhalation Q6H PRN ibuprofen 1,600 mg (2 x 800 mg) PO TID nystatin 1 appl topical BID tirzepatide (weight loss) (Zepbound) 2.5 mg (0.5 mL) subcut QWEEK Tobacco use date assessed: 02/14/25 Dental Screening Dental Screen Date: 02/14/25 HPI HPI Comments History of Present Illness Details History of Present Illness The patient is a 34-year-old male presenting for a follow-up visit to review lab results and to address new complaints of knee and foot pain with numbness. Left Knee Pain: The patient reports significant left knee pain that is a daily issue and causes him severe distress. He reports a history of prior x-rays which showed an absence of the meniscus and ACL, along with severe arthritis. The issue developed over time and he never sought definitive treatment for it. He previously underwent a brief course of physical therapy for about two to three weeks. Bilateral Foot Pain and Numbness: The patient reports his feet go numb and hurt a lot, which he feels is related to his weight but suspects an additional underlying issue. He notes his feet become swollen after work, with pain localized to the arch and heel, which is more pronounced on the left side compared to the right. Urinary Tract Infection: The patient reports a history of a urinary tract infection prior to the COVID-19 pandemic, which presented with hematuria and significant pain, and was treated at an urgent care. Symptoms resolved but began recurring intermittently about a year ago, primarily manifesting as dysuria when he holds his urine. Iron Deficiency Anemia: The patient has a known history of iron deficiency anemia, previously diagnosed by a weight loss clinic. He was prescribed iron supplements but stopped taking them after his supply ran out. Obesity: The patient has had referrals sent for weight loss management and a heating element builder, and these services have contacted him. A prescription for Zepbound was sent but was declined by his insurance. Surgical History: - No prior surgical history discussed. Medications: - Albuterol inhaler for asthma - Nystatin cream - Ibuprofen 800-2000 mg, [id number] r, as needed for pain - Iron supplements (previously, non-adhe rent) Social History: - Nutrition: Patient reports consuming a n albumin replacement protein shake in the morning. 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 - Family: His was present for the v isit. Family History: - Family history was not discussed in wa tail. Diagnostic Results: - Labs: - White Blood Cells: 12.3 (elevated) - Hemoglobin/Hematocrit: Low, consistent with iron deficiency anemia - Comprehensive Metabolic Panel: Sodium, potassium, electrolytes, renal function, calcium, and magnesium are normal. - Liver Function Tests: ALT is slightly elevated at 42. - Random Glucose: 94 (normal) - Hemoglobin A1c: 5.9% (prediabetic rang e) - Lipid Panel: Normal cholesterol and tr iglycerides - Vitamin Levels: B12, Vitamin D, and Fo late are normal. - Infectious Disease Screen: Hepatitis B , Hepatitis C, and HIV are negative. - Urinalysis: Positive for small amounts of white blood cells and leukocyte esterase. - Imaging: - Previous Left Knee X-ray (over a year ago): Revealed no meniscus, no ACL, and severe arthritis. Past Medical History - Iron deficiency anemia - History of urinary tract infection - Asthma - Internal derangement of left knee, wit h history of absent meniscus, absent ACL, and severe arthritis diagnosed on prior X-ray. Health Maintenance - Patient is engaged with a weight manag ement clinic and heating element builder. - Dietary counseling provided regarding carbohydrate intake to manage prediabetes and prevent progression to type 2 diabetes. - Infectious disease screening for Hepat itis B, Hepatitis C, and HIV were completed and are negative. - Discussed a referral to urology for ci rcumcision. - No known drug allergies. REPLACED BY [facility] Medical History (Updated 02/28/25 @ 11:19 by Khoi Schmitt MD) Prediabetes Iron deficiency anemia Left knee pain Left foot pain Flat feet, bilateral ACL (anterior cruciate ligament) rupture Meniscus degeneration Severe obstructive sleep apnea Depression Cellulitis of right leg Left leg swelling Surgical History H/O wisdom tooth extraction Family History Mother COPD (chronic obstructive pulmonary disease) Seizure Father No problems noted. Sister No problems noted. 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 Current occupational exposures/hazards: Yes Cognitive needs: Yes (cane) Hearing needs: No Vision needs: Yes (rx glasses) Questionnaire Thrive Questionnaire Date Thrive assessed: 02/13/25 I am a: Patient What is your living situation today?: I have a place to live, but I am worried about losing it in the future Within the past 12 months, did the food you bought not last and you didn't have the money to get more?: Never true Within the past 12 months, did you worry whether your food would run out before you got money to buy more?: Never true Do you have trouble paying for medicines?: No Do you have trouble getting transportation to medical appointments?: No Do you have trouble paying your heating and electricity bill?: Yes Do you have trouble taking care of your child, family member or friend?: No Do you have trouble with day-to-day activities such as bathing, preparing meals, shopping, managing finances, etc.?: Yes Are you currently unemployed and looking for a job?: No Are you interested in more education?: No Currently or been in a relationship where the following occur: No concerns reported THRIVE Score: 2 REZA-7 AMB Questionnaire REZA-7 Date REZA - 7 assessed: 02/14/25 Source: Developed by Drs. Durga Naht, Ela Chaves, Dav Davis and colleagues, with an educational venkatesh from [employer]. Review of Systems Narrative Review of Systems - Constitutional: Denies fever or chills. - Genitourinary: Reports intermittent dysuria, especially after holding his urine. - Reports a past episode of gross hematuria. - Denies urinary frequency or suprapubic pain. - Musculoskeletal: Reports severe, daily left knee pain. - Reports bilateral foot pain in the arch and heel, worse on the left side, and swelling after work. - Neurological: Reports numbness in his feet. - All other systems were reviewed and are negative. 10-point ROS reviewed and negative except as noted in HPI Physical exam (Primary Care) Vital Signs: Last Vital Signs Temp 97.6 F 02/28/25 10:34 Pulse 86 02/28/25 10:34 Resp 20 02/28/25 10:34 BP 135/78 02/28/25 10:34 Pulse Ox 97 02/28/25 10:34 Oxygen Delivery Method Room Air 02/28/25 10:34 BMI result Body Mass Index 76.4 Tobacco/Smoking Status: Tobacco use Status Tobacco use date assessed 02/14/25 02/28/25 10:33 Patient Tobacco Use Status Former Tobacco user 02/28/25 10:34 Tobacco use type Cigarette,Smokeless Tobacco 02/28/25 10:34 e-Cigarette/Vaping Use Currently Using 02/28/25 10:34 Thrive Assessment: Date of Thrive Assessment Date Thrive assessed 02/13/25 02/28/25 10:33 Currently or been in a relationship where the following occur: No concerns reported Narrative Physical Exam General: Well-appearing, in no acute distress.morbidly obese Vital signs: Within normal limits. HEENT: Normocephalic, atraumatic. PERRLA, EOMI. Conjunctiva clear, sclera an icteric. Oropharynx clear, mucous membranes moist. TMs intact bilaterally. Neck: Supple, no lymphadenopathy, no thyromegaly, no JVD or carotid bruits. Cardiovascular: RRR, normal S1/S2, no murmurs, rubs, or gallops. Peripheral pulses 2+ and symmetric. No edema. Respiratory: Lungs clear to auscultation bilaterally, no wheezes, rales, or rhonchi. Normal effort. Abdomen: Soft, non-tender, non-distended. Normoactive bowel sounds. No hepatosplenomegaly, no masses. MSK: Limited range of motion in the left knee, no meniscus, no ACL, severe arthritis noted. Pain in the left foot, particularly in the arch and heel area. Normal gait otherwise. Skin: Warm, dry, intact. No rashes, lesions, or pallor. Neuro: Alert and oriented x3. Cranial nerves II-XII intact. Strength 5/5 throughout. Sensation intact. Reflexes 2+ symmetric. Normal coordination and gait. Psych: Appropriate mood and affect. Normal judgment and insight. Coding Level of Care Code Est Pt Level 3 (81307) Diagnoses ACL (anterior cruciate ligament) rupture S83.519A Arthritis of left knee M17.12 Meniscus degeneration M23.309 Left foot pain M79.672 Left knee pain M25.562 Morbid obesity E66.01 Iron deficiency anemia D50.9 Prediabetes R73.03 UTI (urinary tract infection) N39.0 Assessment & Plan Assessment & Plan (1) ACL (anterior cruciate ligament) rupture: Code(s): S83.519A - Sprain of anterior cruciate ligament of unspecified knee, initial encounter Category: Medical (2) Arthritis of left knee: Code(s): M17.12 - Unilateral primary osteoarthritis, left knee Category: Medical (3) Meniscus degeneration: Code(s): M23.309 - Other meniscus derangements, unspecified meniscus, unspecified knee Category: Medical (4) Left foot pain: Code(s): M79.672 - Pain in left foot Category: Medical (5) Left knee pain: Code(s): M25.562 - Pain in left knee Category: Medical (6) Morbid obesity: Code(s): E66.01 - Morbid (severe) obesity due to excess calories Category: Medical (7) Iron deficiency anemia: Code(s): D50.9 - Iron deficiency anemia, unspecified Category: Medical (8) Prediabetes: Code(s): R73.03 - Prediabetes Category: Medical (9) UTI (urinary tract infection): Code(s): N39.0 - Urinary tract infection, site not specified Plan Consent The risks, benefits, and alternatives of treatment options were discussed. Specifically, the risk of antibiotic resistance was reviewed regarding treatment for a urinary tract infection, and the decision was made to treat due to the presence of symptoms. It was explained that a steroid injection for his knee would be a temporary Band-Aid solution, and a referral to orthopedics for a more definitive plan was a better alternative. The patient provided verbal consent to the plan, including new prescriptions and specialist referrals. Patient was informed and verbally consented to the use of an ambient scribe for clinic note documentation during this visit. Plan 1. Urinary Tract Infection - The patient's leukocytosis and urinalysis findings (positive leukocyte esterase and WBCs), combined with his subjective report of dysuria, warrant treatment for a symptomatic UTI. - Prescribed nitrofurantoin 100 mg, one tablet twice daily for five days. 2. Iron Deficiency Anemia - In light of low hemoglobin/hematocrit and patient's history, treatment for iron deficiency anemia will be re-initiated. - Prescribed ferrous sulfate with ascorbic acid (Vitamin C) to enhance absorption. - Patient instructed to take iron one hour before meals or two hours after meals. - Prescribed polyethylene glycol (MiraLAX) to be taken as needed for constipation, a common side effect of iron supplementation. 3. Left Knee Internal Derangement - Patient's severe left knee pain is attributed to his history of no meniscus, no ACL, and severe arthritis. - A steroid injection was considered but determined to be a temporary measure. - Placed a referral to Orthopedics for evaluation and discussion of definitive surgical options, such as joint repair or replacement. - Placed a referral for Physical Therapy for the left knee. 4. Bilateral Foot Pain - To evaluate his symptoms of foot pain, swelling, and numbness, a referral will be placed to Podiatry. 5. Prediabetes - Given his hemoglobin A1c of 5.9%, the patient was counseled on the importance of dietary modifications, including reducing the intake of carbohydrates, to prevent progression to type 2 diabetes. 6. Obesity - The prior authorization for tirzepatide (Zepbound) was declined by insurance; this will be appealed. - The patient is connected with the weight management clinic and heating element builder, which will support his weight loss efforts. Discussion Notes I reviewed the patient's recent lab results with him. I explained that the el evated white blood cell count of 12.3 and the findings of white blood cells and leukocyte esterase in his urine, in conjunction with his reported symptom of burning on urination, are indicative of a urinary tract infection, for which I am prescribing a five-day course of antibiotics. We discussed his low hemoglobin and hematocrit, which are consistent with his known history of iron deficiency anemia, and I have re-prescribed iron with vitamin C and MiraLAX. I informed him that his hemoglobin A1c of 5.9% is in the prediabetic range and counseled him on reducing carbohydrate intake. Regarding his severe left knee pain, I explained that given his history of no meniscus, no ACL, and severe arthritis, a steroid injection would likely only provide temporary relief and act as a Band-Aid. I recommended referrals to Orthopedics for a more definitive treatment plan and to Physical Therapy to begin management. We also discussed his foot pain and numbness, and I have placed a referral to Podiatry for further evaluation. The patient and his were included in the discussion and verbalized understanding and agreement with the plan. Patient Instructions - For your urinary tract infection, take one pill of the antibiotic nitrofurantoin twice a day for five days. - For your low iron, take the iron supplement along with the Vitamin C once a day. - Take the iron either one hour before you eat or two hours after you eat. - The iron can cause constipation, so I have also sent a prescription for MiraLAX that you can use if needed. - Your blood sugar is slightly high, putting you in a prediabetic category. Please be careful with your diet and try to limit carbohydrates like bread, rice, and potatoes. - We have placed referrals for you to see a foot doctor (Podiatry) for your foot pain and an academic program specialist for your left knee pain. - We have also placed a referral for physical therapy for your left knee. - Please call to schedule your physical therapy appointment, as they are located in this same building. - We will work on getting the insurance approval for the Zepbound medication. Medical Decision Making The patient is a 34-year-old male presenting for follow-up and management of several acute and chronic issues. His lab results showed a leukocytosis of 12.3 and a urinalysis positive for WBCs and leukocyte esterase. Given his reported symptom of dysuria, these findings are consistent with a symptomatic urinary tract infection, prompting a 5-day course of nitrofurantoin. His lab work also confirmed ongoing iron deficiency anemia, and he reported non-adherence with previous treatment. I have re-prescribed oral iron with vitamin C for absorption and MiraLAX to mitigate the side effect of constipation. An HgbA1c of 5.9% indicates prediabetes, necessitating patient education on dietary modifications to reduce carbohydrate intake and prevent progression to type 2 diabetes. The patient's most significant musculoskeletal complaint is severe left knee simone n, with a history of absent ACL and meniscus and severe arthritis on prior imaging. I advised against a corticosteroid injection as it would merely be a palliative measure. The appropriate course of action is specialist evaluation for a definitive treatment plan; therefore, I have referred him to Orthopedics and Physical Therapy. Additionally, his complaints of bilateral foot pain and numbness, which are more severe on the left, warrant further investigation, for which I have placed a referral to Podiatry. Total time spent caring for the patient today was 20 minutes. This includes time spent before the visit reviewing the chart, time spent documenting, and time spent reviewing laboratory results, diagnostic imaging, medications, performing a medically necessary evaluation, counseling on diagnoses, care coordination. Orders: Orders PT Evaluation and Treatment Today M17.12 - Unilateral primary osteoarthritis, left knee, M23.309 - Other meniscus derangements, unspecified meniscus, unspecified knee, M25.562 - Pain in left knee, S83.519A - Sprain of anterior cruciate ligament of unspecified knee, initial encounter Referrals Orthopedics Referral M23.309 - Other meniscus derangements, unspecified meniscus, unspecified knee, S83.519A - Sprain of anterior cruciate ligament of unspecified knee, initial encounter Podiatry Referral M21.41 - Flat foot [pes planus] (acquired), right foot, M21.42 - Flat foot [pes planus] (acquired), left foot, M79.672 - Pain in left foot Medications: New ibuprofen 1,600 mg (2 x 800 mg) PO TID 60 tabs 0RF ferrous sulfate 325 mg PO DAILY 90 tabs 0RF polyethylene glycol 3350 17 grams PO DAILY 476 grams 0RF ascorbic acid (vitamin C) 500 mg PO DAILY 90 tabs 0RF nitrofurantoin macrocrystal must administer with a meal/food 100 mg PO BID 10 caps 0RF
[2025-02-28 10:34] VITALS: BP 135/78; PULSE 86; RESP 20; TEMP 36.4; O2SAT 97; BMI 76.4
== END 2025-02-28 11:01 | disposition home or self-care (01) ==
LOC: HO.HMCFMS 10:29
PROVIDERS: PCP Nurse Practitioner Family; Visit Provider Student in an Organized Health Care Education/Training Program
DX: S83.519A Sprain of anterior cruciate ligament of unspecified knee, initial encounter (principal); M17.12 Unilateral primary osteoarthritis, left knee; M23.309 Other meniscus derangements, unspecified meniscus, unspecified knee; M79.672 Pain in left foot; M25.562 Pain in left knee; E66.01 Morbid (severe) obesity due to excess calories; D50.9 Iron deficiency anemia, unspecified; R73.03 Prediabetes; N39.0 Urinary tract infection, site not specified

== ENCOUNTER 2025-03-21 07:48 | Outpatient (AMB) | payer OTHER, SELFPAY ==
--- NOTE | 2025-03-21 08:24 | A.OFFVIS_ITS ---
VS Expanded 03/21/25 08:37 Height 5 ft 7 in Weight 482 lb 8 oz BMI 75.6 Body Fat % 56.9 Body Fat Mass 274.6 Fat Free Mass 207.8 Visceral Fat Rating 57 Body Water % 34.4 Body Water Mass 166.2 Basal Metabolic Rate/Score 3,227 Intake Visit Reasons: [employer] BMI 75.7 Allergies No Known Allergies (No Known Allergies*) Allergy (Verified 03/21/25 08:24) Medication List - Last Reconciled 03/21/25 by Ruddy Blank MD albuterol sulfate 90 mcg/actuation (Ventolin HFA) 2 puffs inhalation Q6H PRN ascorbic acid (vitamin C) 500 mg PO DAILY ferrous sulfate 325 mg PO DAILY ibuprofen 1,600 mg (2 x 800 mg) PO TID nystatin 1 appl topical BID polyethylene glycol 3350 17 grams PO DAILY HPI HPI [employer] BMI 75.7: Details: Start time: 8.15am, End time: 9am ?I spent 40 minutes speaking with the patient on the phone plus an additional 5 minutes reviewing and updating records for a total of 45 minutes HPI Comments Details: Previous weight loss efforts: [facility] [place] Wakes up: 6am, Sleeps: 11pm Breakfast: powdered Premier shake with 2 scoops with Northern Irish yogurt and almond milk Lunch: 1-2pm (left over from day before) Dinner: 7pm (protein, vegetables ) Snacks: 9pm (fruits) Exercise: none Beverages: Coffee: 1 cup/d (creamer), Tea: none, Soda: Coke/Pepsi/Sprite: a few times per week, Juice: lemonade, ETOH: 2/yr [facility] Medical History (Updated 02/28/25 @ 11:19 by Khoi Schmitt MD) Prediabetes Iron deficiency anemia Left knee pain Left foot pain Flat feet, bilateral ACL (anterior cruciate ligament) rupture Meniscus degeneration Severe obstructive sleep apnea Depression Cellulitis of right leg Left leg swelling Surgical History H/O wisdom tooth extraction Family History Mother COPD (chronic obstructive pulmonary disease) Seizure Father No problems noted. Sister No problems noted. 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 Current occupational exposures/hazards: Yes Cognitive needs: Yes (cane) Hearing needs: No Vision needs: Yes (rx glasses) Telehealth Telehealth Telehealth Platform: Telephone Location of provider rendering services: practice address Location of patient: address on file Patient Identification confirmed using: Name, : Yes Telehealth method: voice only Patient verbally consented to treatment: Yes Patient verbally consented to billing insurance company: Yes Patient informed of any privacy concerns related to visit: Yes Minutes spent on Phone/Video with Pt.: 45 Assessment & Plan Assessment & Plan (1) Morbid obesity: Code(s): E66.01 - Morbid (severe) obesity due to excess calories Category: Medical Plan: 1.? Plan for lap sleeve gastrectomy. If diaphragmatic or ventral hernias are present at time of surgery, these will be repaired laparoscopically as well. I emphasized the importance of close follow-up, adherence to instructions and good communication. The surgery does not replace the need to change your lifestlyle which is the cause of the obesity problem. The surgery provides the motivation to try again to change your lifestyle, it reduces the appetite and make the transition to a better lifestyle easier and doubles the amount of weight you would lose compared to doing the lifestyle change without the srivastava rgery. You will need to be on a liquid diet with protein shakes for 2 weeks before surgery to maximize weight loss and boost your nutritional status to recover better from surgery and also for the first two weeks after surgery to let the stomach heal before we introduce other foods. After the first 2 weeks we will introduce protein bars and soft foods like scrambled eggs, cottage cheese and yogurt and after the 6th week will introduce meat, fish and cooked vegetables in small amounts. Over time you should be able to eat everything in small amounts. Side effects like nausea, vomiting, heartburn or abdominal pain are not common in the practice unless you are not following in the practice. This operation requires lifetime commitment to following in our practice and communication with me. You will much less weight and experience side effects if you don?t communicate or not following in the practice. Complications are rare and in our practice is about 1/10 of the national average. However, you can develop bleeding that may require transfusion (hasn?t happened for year in the practice), you may from complications (we did not have any deaths in the practice) and infections. Infections are usually a result of breakdown in communication or not understanding or following directions correctly. They are difficult to treat, they can happen during the first 6 weeks, they may require to be in the hospital for weeks or even months, not being able to eat by mouth and you may have drains and surgeries to try and correct the issue. Other risks and complications include possible conversion to an open procedure, leaks, small bowel obstruction, blood clots, cardiac, or pulmonary complications, as terminal worker complications such as ulcers, insufficient weight loss and vitamin deficiencies. 2. Nutritional counseling. Start with one PREMIER protein mixing 2 scoops with moroccan yogurt and almond milk at 7am-9am, three protein bars (Fit Crunch protein bar, buy at [employer], or [employer]) at 10am-12pm, 1pm-3pm and 4pm-6pm, dinner at 7pm (15 forks of protein and 15 forks of salad/vegetables) and one more Premier shake with 2 scoops in 10oz almond milk without yogurt at 9pm-11pm So you do 2 protein shakes, 3 protein bars and one meal per day. Meal to include lean meat (beef, fish, pork, turkey, chicken), or moroccan yogurt, or egg whites, or beans with a salad with olive oil and fruits (berries, pears, apples, kiwi). Avoid salt, breads, potatoes, rice, pasta, desserts. 3. Each shake would be drunk slowly, like coffee in a period of 2 hours. 4. Cut each bar in 4 pieces and eat each piece in 30min ?to make each bar last 2 hours. 5. I emphasized the importance of measuring accurately the food portion and measure it when serving the food in plate 6. The meal portions include 15 full-size forks of meat and 15 full-size forks of salad. You always eat the meat portion but you can replace up to 7 forks for salad/vegetables with rice, potatoes or pasta, or a fruit ?if you like. The less you do it the better weight loss will be. 7. One full-size fork is what it can be scooped on the fork without falling aside and not what can be bit with the fork. Use regular forks like those you find in a typical restaurant. 8.? Please buy the body composition scale we discussed and send me weight measurements as soon as possible and then once a week. Always include your diet and exercise plan. 9. The best choice would be to purchase a recumbent stationary bike at home that can track calories. Let me know if you do so I can give you an exercise plan. 10. Goal is to lose at least 1.5-2lbs per week 11. Goal to lose 10% of your weight before surgery, which is about 82lbs. Ultimate weight goal: 400lbs before surgery 12. Please follow the diet plan exactly without any change. If you don't like something about the plan or you feel hungry you need to communicate with me so I can help you revise the plan. You should not change the plan yourself 13. To be scheduled for EGD to assess the stomach's anatomy. The possibility of biopsies was discussed. Patient needs to avoid use of NSAIDs and aspirin for 1 week prior to EGD. You must be on liquids only the day before your endoscopy. Risks of perforation and bleeding was discussed with the patient. This will be an outpatient procedure with IV sedation. 14. The patient is extremely obese with a BMI of 75.7. He was in the program 2 years ago and at that time his BMI was 72 kg/m2. He did well then losing 31.5lbs in 10 months with lifestyle intervention only. He lost his insurance and had to withdraw from the program. Now he returns having regained all weight and more. Has severe sleep apnea and prediabetes. He is in great need to control the diabetes and his weight and past experience has shown that lifestyle intervention alone will not be sufficient due to his high BMI. I ordered a medication to help you with the weight loss which is called Brandi. My office will try to authorize it. Please let me know when you receive it so I can give you a meal and exercise plan. Common side effects include nausea, vomiting, constipation, diarrhea, abdominal pain. Please let me know if you develop any of these symptoms. Orders: Referrals Behavioral Health Referral E66.01 - Morbid (severe) obesity due to excess calories Medications: New tirzepatide (Mounjaro) for 4 weeks 2.5 mg (0.5 mL) subcut QWEEK 2 mL 0RF R73.03 - Prediabetes
[2025-03-21 08:37] VITALS: BMI 75.6
== END 2025-03-21 09:00 | disposition home or self-care (01) ==
LOC: HO.HBS 07:48
PROVIDERS: PCP Nurse Practitioner Family; Visit Provider Surgery
DX: E66.01 Morbid (severe) obesity due to excess calories (principal)
CPT/HCPCS: 99214

== ENCOUNTER → 2025-03-21 07:48 | Outpatient (BNVA) | payer OTHER, SELFPAY | PROVIDERS: PCP Nurse Practitioner Family; Visit Provider Surgery | DX: E66.01 Morbid (severe) obesity due to excess calories (principal); G47.30 Sleep apnea, unspecified; R73.03 Prediabetes; Z71.3 Dietary counseling and surveillance; Z68.45 Body mass index [BMI] 70 or greater, adult | CPT/HCPCS: 99212 ==